=== PATIENT | female | born 1950 | race Caucasian/White ===

== ENCOUNTER 2016-04-27 09:18 | Outpatient (RCR) | payer BC ==
--- OUTSIDE RECORDS SUMMARY | 2016-03-02 09:05 | XMS REPORT | Continuity of Care Document ---
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 If you do not see the information that you expected, contact Release of Information in the Health Information Management department at [phone] for further assistance in locating additional records.[facility] Active Allergies and Adverse Reactions Allergen Noted Date Severity Reactions Comments Adhesive Tape (Rosins) 02/20/2012 RASH Per pt, paper tape is ok. Iodine 02/20/2012 HIVES From shampoo containing iodine. Pcn 02/20/2012 SEE COMMENTS "About passed out" Current Medications Prescription Sig. Disp. Refills Start End Date Status Date thyroid (ARMOUR THYROID) Take 120 mg by mouth Active 60 mg tablet daily. cholecalciferol (Vitamin Take 1,000 Units by mouth Active D3) (VITAMIN D-3) 1,000 daily. units tablet CALCIUM CARBONATE Take by mouth daily. Active (CALCIUM 500 PO) anastrozole (ARIMIDEX) 1 TAKE 1 TABLET BY MOUTH 90 Tab 4 04/02/20 Active mg tablet DAILY 15 venlafaxine XR (EFFEXOR Take 1 Cap by mouth 90 Cap 3 12/07/19 Active XR) 75 mg capsule daily. 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 Cervantes) HISTORY: Ms. Rivers is a 61 yo female who presented to the [facility] on 07/10/2012 for evaluation of her Stage IV left breast cancer. Ms. Rivers first presented to the Orthopedic clinic with a left proximal thigh lesion. She was having pain in her left leg since October-November 2011 after she bumped into her kitchen counter. She continued to have pain and had another accident when a large heavy object fell on her left distal thigh. She saw her PCP on 02/07/12 and xrays of the pelvis and left hip showed a large lytic lesion in the left proximal femur involving the femoral next, extending toward the greater trochanter and the metaphysis. Bone scan 02/01/12 showed a solitary metastatic focus in the left proximal femur that was highly suspicious for metastatic disease. A chest xray was negative for a primary lung cancer. CT chest/abdomen/pelvis 02/13/12 ([facility], [place]) showed a questionable spiculated lesion in the left breast and a again a 4cm lesion in the intratrochanteric and subintrarochanteric areas of the proximal left femur. She underwent open biopsy left proximal femur, resection of left proximal femur, and left modular proximal femur replacement with Dr. Cervantes due to impending pathological fracture from the lesion. She was admitted to the hospital and breast surgery was consulted. A left breast ultrasound 02/22/12 showed a 1.8 x 1.2 x 2.2 cm spiculated hypoechoic mass at 12:00, 3 cm FTN. An additional 8mm satellite lesion was seen at 12:30, 5 mm away from the dominant mass. The left axilla appeared normal without evidence of adenopathy. A bedside CNBx was performed of the 12:00 mass which revealed, grade 2, hormone +, Her2 negative, IDC. She was discharged 02/27/[address] Keith on 03/26/12; bilateral diagnostic mammograms at that time showed a 2.2 cm mass at 12:00 in the left breast and no other lesions were seen in either breast. There was no evidence of axillary adenopathy. She was started on Faslodex and Arimidex. She underwent 10 rounds of radiation treatment from the left femur to the right hip. Follow-up ultrasound 07/10/12 showed the known malignancy at 12:00, 3 cm FTN to have decreased in size measuring 1.8 cm compared to 2.2 cm on the prior exam. At 12:30, 3 cm the nipple at the site of prior ill-defined mass measuring 7 mm there is a small cystic structure measuring 5 mm. No other masses are seen at this location. The left axilla appeared normal without evidence of adenopathy. 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 No skin retraction, rash, erythema, skin thickening, dimpling, nipple discharge appreciated on exam". MEDICAL ONCOLOGY: Dr. Keith Present Therapy: Arimidex Status post left hip replacement 04/01/2012 Breast CA (HCC) 02/27/2012 Metastasis to bone (HCC) 02/27/2012 Most Recent Encounters Date Type Specialty Providers Description 12/15/2015 Documentation Oncology Abdias Keith MD 12/14/2015 Telephone Orthopedic Surgery Christine Cervantes MD Results 12/08/2015 Documentation Orthopedic Surgery Christine Cervantes MD 12/07/2015 Hospital Radiology Abdias Keith MD Encounter 12/07/2015 Office Visit Oncology Pamela Medrano APRN Malignant neoplasm of left female breast, unspecified site of breast (HCC) (Primary Dx) 12/07/2015 Telephone Orthopedic Surgery Christine Cervantes MD Appointment 12/07/2015 Telephone Orthopedic Surgery Christine Cervantes MD Appointment 12/07/2015 Telephone Orthopedic Surgery Christine Cervantes MD Appointment Immunizations Name Dates Previously Given Next Due FLU VACCINE >3YO 02/23/2012 (Preservative Free) Flu Vaccine 03/04/2015 Quadrivalent=>3 Yo (Preservative Free) Social History Tobacco Use Types Packs/Day Years Used Date Former Smoker Cigarettes 1 10 Quit: 05/22/1989 Smokeless Tobacco: Never Used Alcohol Use Drinks/Week oz/Week Comments No Last Filed Vital Signs Vital Sign Reading Time Taken Blood Pressure 164/52 12/07/2015 1:01 PM CDT Pulse 101 12/07/2015 1:01 PM CDT Temperature 36.7 C (98.1 F) 12/07/2015 1:01 PM CDT Respiratory Rate 17 09/02/2015 10:30 AM CDT Height 1.651 m (5' 5") 12/07/2015 1:01 PM CDT Weight 94.53 kg (208 lb 6.4 oz) 12/07/2015 1:01 PM CDT Body Mass Index 34.68 12/07/2015 1:01 PM CDT Oxygen Saturation 98% 12/07/2015 1:01 PM CDT Plan of Care Date Type Specialty Providers Description 03/09/2016 Appointment Radiology 03/09/2016 Appointment Radiology Abdias Keith MD [address] [facility] [address] [place] [address] [phone] (Fax) 03/09/2016 Appointment Oncology Pamela Medrano APRN [address] [place] [address] [phone] (Fax) Health Maintenance Due Date Last Done Comments Hepatitis C Screening 1950 Physical (Comprehensive) 11/26/1959 Exam Pertussis Vaccine 11/26/1963 Tetanus Vaccine 1969 Cervical Cancer Screening 1973 Colorectal Cancer 2002 Screening Shingles Vaccine 2012 Breast Cancer Screening 03/26/2014 03/26/2012 Influenza Vaccine 01/21/2016 03/04/2015, 02/23/2012 Results from Last 3 Months HIP MIN 4 VIEWS W PELVIS LT (12/07/2015 1:45 PM) Impressions 1. No evidence of an acute osseous abnormality. 2. Proximal left femoral prosthesis and left hip hemiarthroplasty. A small amount of pelvic calcification is identified adjacent to the left hip prosthesis. 3. Mild degenerative changes involving the right hip. Finalized by Vignesh Gaytan M.D. on 12/07/2015 2:23 PM. Dictated by Vignesh Gaytan M.D. on 12/07/2015 2:20 PM. Narrative Pelvis with left hip Clinic data: Pelvic pain A single AP projection of the pelvis and three projections of the left hip were acquired. Comparison is made to patient's prior study of 04/01/2013. A prosthetic left proximal femur and left hip hemiarthroplasties place. Alignment appears satisfactory. A small amount of heterotopic ossification is identified adjacent to the left hip. Mild degenerative changes are present involving the right hip which appears similar the prior study. The SI joints and pubic symphysis demonstrate no evidence of diastases. Osteitis pubis is noted. Procedure Note Interface, Radiant Results - MonDec 07, 2015 2:26 PM CDT Pelvis with left hip Clinic data: Pelvic pain A single AP projection of the pelvis and three projections of the left hip were acquired. Comparison is made to patient's prior study of 04/01/2013. A prosthetic left proximal femur and left hip hemiarthroplasties place. Alignment appears satisfactory. A small amount of heterotopic ossification is identified adjacent to the left hip. Mild degenerative changes are present involving the right hip which appears similar the prior study. The SI joints and pubic symphysis demonstrate no evidence of diastases. Osteitis pubis is noted. IMPRESSION 1. No evidence of an acute osseous abnormality. 2. Proximal left femoral prosthesis and left hip hemiarthroplasty. A small amount of pelvic calcification is identified adjacent to the left hip prosthesis. 3. Mild degenerative changes involving the right hip. Finalized by Vignesh Gaytan M.D. on 12/07/2015 2:23 PM. Dictated by Vignesh Gaytan M.D. on 12/07/2015 2:20 PM. COMPREHENSIVE METABOLIC PANEL (12/07/2015 10:06 AM) Component Value Range Sodium 139 137-147 MMOL/L Potassium 3.9 3.5-5.1 MMOL/L Chloride 106 98-110 MMOL/L Glucose 70 70-100 MG/DL Blood Urea Nitrogen 25 7-25 MG/DL Creatinine 0.84 0.4-1.00 MG/DL Calcium 9.7 8.5-10.6 MG/DL Total Protein 6.9 6.0-8.0 G/DL Total Bilirubin 0.6 0.3-1.2 MG/DL Albumin 4.0 3.5-5.0 G/DL Alk Phosphatase 84 25-110 U/L AST (SGOT) 17 7-40 U/L CO2 28 21-30 MMOL/L ALT (SGPT) 18 7-56 U/L Anion Gap 5 3-12 eGFR Non >60Comment: >60 mL/min The eGFR is not validated for use in drug dosing adjustments. Continue to use estimated creatinine clearance per dosing reference text. Please contact the Clinical Pharmacist for questions. eGFR >60Comment: >60 mL/min The eGFR is not validated for use in drug dosing adjustments. Continue to use estimated creatinine clearance per dosing reference text. Please contact the Clinical Pharmacist for questions. Specimen Blood CBC AND DIFF (12/07/2015 10:06 AM) Component Value Range White Blood Cells 5.3 4.5-11.0 K/UL RBC 4.69 4.0-5.0 M/UL Hemoglobin 13.5 12.0-15.0 GM/DL Hematocrit 39.6 36-45 % MCV 84.4 80-100 FL MCH 28.7 26-34 PG MCHC 34.0 32.0-36.0 G/DL RDW 12.8 11-15 % Platelet Count 216 150-400 K/UL MPV 8.0 7-11 FL Neutrophils 57 41-77 % Lymphocytes 27 24-44 % Monocytes 12 4-12 % Eosinophils 3 0-5 % Basophils 1 0-2 % Absolute Neutrophil Count 3.00 1.8-7.0 K/UL Absolute Lymph Count 1.40 1.0-4.8 K/UL Absolute Monocyte Count 0.70 0-0.80 K/UL Absolute Eosinophil Count 0.20 0-0.45 K/UL Absolute Basophil Count 0.00 0-0.20 K/UL Specimen Blood
[2016-03-30 14:10] LABS: BASOPHILS % (AUTO) 0 % (0-10); EOSINOPHILS # (AUTO) 0.1 10^3/uL (0.0-0.3); EOSINOPHILS % (AUTO) 3 % (0-10); LYMPHOCYTES # (AUTO) 1.5 X 10^3 (1.0-4.0); LYMPHOCYTES % (AUTO) 28 % (12-44); MEAN CORPUSCULAR HEMOGLOBIN 28 PG (25-34); MEAN CORPUSCULAR HGB CONC 34 G/DL (32-36); MEAN CORPUSCULAR VOLUME 83 FL (80-99); MONOCYTES # (AUTO) 0.5 X 10^3 (0.0-1.0); MONOCYTES % (AUTO) 9 % (0-12); NEUTROPHILS # (AUTO) 3.3 X 10^3 (1.8-7.8); NEUTROPHILS % (AUTO) 60 % (42-75); PLATELET COUNT 284 10^3/uL (130-400); RED BLOOD COUNT 5.08 10^6/uL (4.35-5.85); RED CELL DISTRIBUTION WIDTH 13.6 % (10.0-14.5); WHITE BLOOD COUNT 5.5 10^3/uL (4.3-11.0)
[2016-03-30 14:43] LABS: ALANINE AMINOTRANSFERASE 31 U/L (0-55); ALBUMIN 4.3 G/DL (3.2-4.5); ANION GAP 6 MMOL/L (5-14); ASPARTATE AMINO TRANSFERASE 23 U/L (5-34); BILIRUBIN,TOTAL 0.4 MG/DL (0.1-1.0); BLOOD UREA NITROGEN 14 MG/DL (7-18); BUN/CREATININE RATIO 19; CALCIUM 9.7 MG/DL (8.5-10.1); CARBON DIOXIDE 27 MMOL/L (21-32); CHLORIDE 107 MMOL/L (98-107); CREATININE SERUM 0.75 MG/DL (0.60-1.30); GFR ESTIMATED > 60; GLUCOSE 113 MG/DL (70-105); POTASSIUM 3.8 MMOL/L (3.6-5.0); SODIUM 140 MMOL/L (135-145); TOTAL PROTEIN 7.6 G/DL (6.4-8.2)
[~2016-04-27 09:18] MED LIST: DENOSUMAB 120 MG/1.7 ML (XGEVA) SQ SCH; FULVESTRANT 250 MG/5 ML SYR (CANCER CENTER) IM SCH
== END 2016-05-25 13:34 | disposition home or self-care (01) ==
LOC: ONC 09:18
PROVIDERS: ATTEND Internal Medicine Hematology & Oncology
DX: C50.912 Malignant neoplasm of unspecified site of left female breast (principal); C79.51 Secondary malignant neoplasm of bone; Z79.818 Long term (current) use of other agents affecting estrogen receptors and estrogen levels
CPT/HCPCS: 36415; 80053; 85025; 86300; 96372; 96402; 99213

== ENCOUNTER 2016-08-17 09:09 | Outpatient (RCR) | payer BC ==
--- OUTSIDE RECORDS SUMMARY | 2016-05-25 13:41 | XMS REPORT | Continuity of Care Document ---
Author Author [facility] Organization [facility] Address Unknown Phone Unavailable Care Team Providers Care [place] Name Role Phone Desililly Quan PCP [phone] Source Comments Some departments are not documenting in the electronic medical record. If you do not see the information that you expected, contact Release of Information in the Health Information Management department at [phone] for further assistance in locating additional records.[facility] Active Allergies and Adverse Reactions Allergen Noted [...] by mouth daily. Active (CALCIUM 500 PO) venlafaxine XR (EFFEXOR Take 1 Cap by mouth 90 Cap 3 12/07/19 Active XR) 75 mg capsule daily. 16 anastrozole (ARIMIDEX) 1 TAKE 1 TABLET BY MOUTH 90 Tab 4 04/04/20 Active mg tablet DAILY 16 levothyroxine (SYNTHROID) Take 100 mcg by mouth Active 100 mcg tablet daily 30 minutes before breakfast. cloNIDine HCl (CATAPRESS) Take 0.1 mg by mouth Active 0.1 mg tablet twice daily. losartan(+) (COZAAR) 100 Take 100 mg by mouth Active mg tablet daily. Active Problems Problem Noted Date Breast cancer [...] a primary lung cancer. CT chest/abdomen/pelvis 02/13/12 ([facility] [place]) showed a questionable spiculated lesion in the [...] Hypothyroidism (due to thyroidectomy for "overactive" thyroid) [employer] HISTORY: Menarche at 17, , first live [...] Recent Encounters Date Type Specialty Providers Description 05/25/2016 Office Visit Oncology Pamela Medrano APRN Malignant neoplasm of left female breast, unspecified site of breast (HCC) (Primary Dx) 04/04/2016 Refill Oncology Abdias Keith MD 03/09/2016 Office Visit Oncology Pamela Medrano APRN Malignant neoplasm of left female breast, unspecified site of breast (HCC) (Primary Dx) 03/09/2016 Hospital Radiology Abdias Keith MD Encounter 03/09/2016 Hospital Radiology Pamela Medrano APRN Encounter 03/09/2016 Ancillary Oncology Abdias Keith MD Malignant neoplasm of Orders left female breast, unspecified site of breast (HCC) (Primary Dx) 03/08/2016 Screening Form Immunizations Name Dates Previously Given Next Due FLU VACCINE >3YO 02/23/2012 (Preservative Free) Flu Vaccine 03/09/2016, 03/04/2015 Quadrivalent=>3 Yo (Preservative Free) Social History Tobacco Use Types Packs/Day Years Used Date Former Smoker Cigarettes 1 10 Quit: 05/22/1989 Smokeless Tobacco: Never Used Alcohol Use Drinks/Week oz/Week Comments No Last Filed Vital Signs Vital Sign Reading Time Taken Blood Pressure 164/83 05/25/2016 10:34 AM ENVIRONMENTAL COMPLIANCE OFFICER Pulse 78 05/25/2016 10:34 AM ENVIRONMENTAL COMPLIANCE OFFICER Temperature 36.4 C (97.6 F) 05/25/2016 10:34 AM ENVIRONMENTAL COMPLIANCE OFFICER Respiratory Rate 17 05/25/2016 10:34 AM ENVIRONMENTAL COMPLIANCE OFFICER Height 1.651 m (5' 5") 05/25/2016 10:35 AM ENVIRONMENTAL COMPLIANCE OFFICER Weight 94.802 kg (209 lb) 05/25/2016 10:35 AM ENVIRONMENTAL COMPLIANCE OFFICER Body Mass Index 34.78 05/25/2016 10:35 AM ENVIRONMENTAL COMPLIANCE OFFICER Oxygen Saturation 97% 05/25/2016 10:34 AM ENVIRONMENTAL COMPLIANCE OFFICER Plan of Care Date Type Specialty Providers Description 09/13/2016 Appointment Oncology 09/13/2016 Appointment Oncology Abdias Keith MD [address] [facility] [place] [address] [id number] [phone] (Fax) Health Maintenance Due Date Last Done Comments Hepatitis C Screening 1950 Physical (Comprehensive) 11/26/1959 Exam Pertussis Vaccine 11/26/1963 Tetanus Vaccine 1969 Cervical Cancer Screening 1973 Colorectal Cancer 2002 Screening Shingles Vaccine 2012 Breast Cancer Screening 03/26/2014 03/26/2012 Influenza Vaccine 01/20/2017 03/09/2016, 03/04/2015, 02/23/2012 Results from Last 3 Months CBC AND DIFF (05/25/2016 10:18 AM)Only the most recent of 2 results within the time period is included. Component Value Range White Blood Cells 6.1 4.5-11.0 K/UL RBC 4.81 4.0-5.0 M/UL Hemoglobin 14.1 12.0-15.0 GM/DL Hematocrit 41.3 36-45 % MCV 85.8 80-100 FL MCH 29.4 26-34 PG MCHC 34.3 32.0-36.0 G/DL RDW 14.1 11-15 % Platelet Count 265 150-400 K/UL MPV 7.9 7-11 FL Neutrophils 69 41-77 % Lymphocytes 19 (L) 24-44 % Monocytes 8 4-12 % Eosinophils 3 0-5 % Basophils 1 0-2 % Absolute Neutrophil Count 4.20 1.8-7.0 K/UL Absolute Lymph Count 1.20 1.0-4.8 K/UL Absolute Monocyte Count 0.50 0-0.80 K/UL Absolute Eosinophil Count 0.20 0-0.45 K/UL Absolute Basophil Count 0.00 0-0.20 K/UL Specimen Blood COMPREHENSIVE METABOLIC PANEL (05/25/2016 10:18 AM)Only the most recent of 2 results within the time period is included. Component Value Range Sodium 135 (L) 137-147 MMOL/L Potassium 4.0 3.5-5.1 MMOL/L Chloride 104 98-110 MMOL/L Glucose 83 70-100 MG/DL Blood Urea Nitrogen 17 7-25 MG/DL Creatinine 0.91 0.4-1.00 MG/DL Calcium 9.2 8.5-10.6 MG/DL Total Protein 7.1 6.0-8.0 G/DL Total Bilirubin 0.4 0.3-1.2 MG/DL Albumin 4.2 3.5-5.0 G/DL Alk Phosphatase 59 25-110 U/L AST (SGOT) 20 7-40 U/L CO2 26 21-30 MMOL/L ALT (SGPT) 22 7-56 U/L Anion Gap 5 3-12 eGFR [...] the Clinical Pharmacist for questions. Specimen Blood CT ABD/PELV W CONTRAST (03/09/2016 12:00 PM) Impressions Chest: 1. STABLE IRREGULAR SPICULATED AREA IN THE LEFT UPPER INNER BREAST, REFLECTIVE OF PATIENT'S SITE OF BREAST CANCER. 2. MILDLY PROMINENT BILATERAL HILAR NODES WHICH MAY BE REACTIVE IN NATURE. 3. NO CT EVIDENCE OF PULMONARY METASTASIS. 4. MODERATE SIZE HIATAL HERNIA. Abdomen and Pelvis: 1. TINY LOW-DENSITY LIVER LESION IN SEGMENT 4A WHICH WAS NOT APPARENT ON THE PRIOR STUDY BUT IS TOO SMALL TO CHARACTERIZE. THIS MAY REPRESENT A TINY HEPATIC CYST. HEPATIC METASTASIS MAY ALSO GIVE A SIMILAR APPEARANCE. CORRELATION WITH ULTRASOUND OF THE ABDOMEN OR MRI OF THE ABDOMEN MAY BE OBTAINED. 2. NO ABDOMINAL/PELVIC ADENOPATHY OR ASCITES. 3. LEFT RENAL CYSTS. 4. STABLE PRIOR LEFT HIP ARTHROPLASTY. 5. STABLE INCREASED SCLEROSIS INVOLVING THE SYMPHYSIS PUBIS, WHICH MAY BE DUE TO OSTEITIS PUBIS OR POST THERAPEUTIC CHANGE. Finalized by Rikki Reyes M.D. on 03/09/2016 1:23 PM. Dictated by Rikki Reyes M.D. on 03/09/2016 12:[address] Chest, Abdomen and Pelvis Clinical Indication:65 years old Female BREAST CANCER.Malignant neoplasm of left female breast, unspecified site of breast. Technique: Multiple contiguous axial images were obtained through the chest, abd omen and pelvis following the administration of IV contrast material. Portal venous and delayed imaging was obtained. Post processing coronal and sagittal reconstruction images were made from the axial images. IV contrast: 100 mL Isovue 370. Bowel contrast:30 mL Gastrografin mixed with water Comparison: Outside CT of the chest, abdomen and pelvis dated 06/02/2014. Chest Findings: Axilla, Mediastinum and Mame: No significant axillary or mediastinal adenopathy. Calcified right hilar granulomas are noted. Prominent bilateral hilar nodes are seen within the right hilar node measuring 1.0 cm in diameter on image 2/30 compared to prior measurement of 0.9 cm. Moderate-sized hiatal hernia is identified. Heart and Great Vessels: The heart is mildly enlarged. No pericardial effusion is noted. The thoracic aorta is normal in caliber. Mild atherosclerotic ossification about the aortic arch is noted. Trachea and Major Bronchi: The major airways are widely patent. Lungs and Pleura: Mild emphysema. Calcified granuloma is identified in the right upper lobe. Scattered patchy pleural parenchymal scars are noted in both lungs. No pneumothorax, acute pulmonary infiltrates, consolidation or pleural effusion is noted. No suspicious pulmonary nodules are identified. Chest Wall and Osseous Structures: There is stable size of irregular spiculated area in the upper inner portion of the left breast measuring 1.7 cm x 0.9 cm on image 2/18 compared to prior measurement of 1.6 cm x 0.9 cm. Degenerative changes are noted involving the thoracic spine with mild accentuation of the thoracic kyphotic curve. No suspicious destructive osseous lesions are identified. Abdomen and Pelvis Findings: Liver and Biliary system: The liver is normal in size. There is a tiny low- density lesion in segment 4A of the liver on image 2/69 which is too small to characterize and is not clearly evident on the prior study. No other new focal hepatic lesion is seen. No intra or extrahepatic biliary ductal dilatation is appreciated. The gallbladder is unremarkable. Spleen: The spleen is normal in size with occasional small calcified splenic granulomas. No focal splenic lesion appreciated. Adrenal Glands and Kidneys: The bilateral adrenal glands and right kidney appear unremarkable. A low-density lesion is noted about the interpolar region of the left kidney measuring 1.8 cm in diameter compatible with left renal cyst. Pancreas and Retroperitoneum: The pancreas appears unremarkable. No significant retroperitoneal adenopathy seen. Aorta and Major Vessels: The abdominal aorta is normal in caliber. There is mild atherosclerotic calcification of the abdominal aorta and bilateral common iliac arteries. Bowel: The small and large bowel loops are normal in caliber. Mesentery and Peritoneal space: No significant mesenteric adenopathy is identified. No significant abdominal or pelvic ascites is appreciated. Pelvis: No significant inguinal or iliac adenopathy is identified. The urinary bladder is adequately distended with thin gallardo. The uterus is absent. Abdominal wall and Osseous Structures: Thoracolumbar spondylosis is again identified. Prior left hip arthroplasty is again noted. Increased sclerosis about the symphysis pubis. No suspicious destructive osseous lesions are identified. Procedure Note Interface, Radiant Results - Wed Mar 09, 2016 1:[address] Chest, Abdomen and Pelvis Clinical Indication:65 years old Female BREAST CANCER.Malignant neoplasm of left female breast, unspecified site of breast. Technique: Multiple contiguous axial images were obtained through the chest, abdomen and pelvis following the administration of IV contrast material. Portal venous and delayed imaging was obtained. Post processing coronal and sagittal reconstruction images were made from the axial images. IV contrast: 100 mL Isovue 370. Bowel contrast: 30 mL Gastrografin mixed with water Comparison: Outside CT of the chest, abdomen and pelvis dated 06/02/2014. Chest Findings: Axilla, Mediastinum and Mame: No significant axillary or mediastinal adenopathy. Calcified right hilar granulomas are noted. Prominent bilateral hilar nodes are seen within the right hilar node measuring 1.0 cm in diameter on image 2/30 compared to prior measurement of 0.9 cm. Moderate-sized hiatal hernia is identified. Heart and Great Vessels: The heart is mildly enlarged. No pericardial effusion is noted. The thoracic aorta is normal in caliber. Mild atherosclerotic ossification about the aortic arch is noted. Trachea and Major Bronchi: The major airways are widely patent. Lungs and Pleura: Mild emphysema. Calcified granuloma is identified in the right upper lobe. Scattered patchy pleural parenchymal scars are noted in both lungs. No pneumothorax, acute pulmonary infiltrates, consolidation or pleural effusion is noted. No suspicious pulmonary nodules are identified. Chest Wall and Osseous Structures: There is stable size of irregular spiculated area in the upper inner portion of the left breast measuring 1.7 cm x 0.9 cm on image 2/18 compared to prior measurement of 1.6 cm x 0.9 cm. Degenerative changes are noted involving the thoracic spine with mild accentuation of the thoracic kyphotic curve. No suspicious destructive osseous lesions are identified. Abdomen and Pelvis Findings: Liver and Biliary system: The liver is normal in size. There is a tiny low- density lesion in segment 4A of the liver on image 2/69 which is too small to characterize and is not clearly evident on the prior study. No other new focal hepatic lesion is seen. No intra or extrahepatic biliary ductal dilatation is appreciated. The gallbladder is unremarkable. Spleen: The spleen is normal in size with occasional small calcified splenic granulomas. No focal splenic lesion appreciated. Adrenal Glands and Kidneys: The bilateral adrenal glands and right kidney appear unremarkable. A low-density lesion is noted about the interpolar region of the left kidney measuring 1.8 cm in diameter compatible with left renal cyst. Pancreas and Retroperitoneum: The pancreas appears unremarkable. No significant retroperitoneal adenopathy seen. Aorta and Major Vessels: The abdominal aorta is normal in caliber. There is mild atherosclerotic calcification of the abdominal aorta and bilateral common iliac arteries. Bowel: The small and large bowel loops are normal in caliber. Mesentery and Peritoneal space: No significant mesenteric adenopathy is identified. No significant abdominal or pelvic ascites is appreciated. Pelvis: No significant inguinal or iliac adenopathy is identified. The urinary bladder is adequately distended with thin gallardo. The uterus is absent. Abdominal wall and Osseous Structures: Thoracolumbar spondylosis is again identified. Prior left hip arthroplasty is again noted. Increased sclerosis about the symphysis pubis. No suspicious destructive osseous lesions are identified. IMPRESSION Chest: 1. STABLE IRREGULAR SPICULATED AREA IN THE LEFT UPPER INNER BREAST, REFLECTIVE OF PATIENT'S SITE OF BREAST CANCER. 2. MILDLY PROMINENT BILATERAL HILAR NODES WHICH MAY BE REACTIVE IN NATURE. 3. NO CT EVIDENCE OF PULMONARY METASTASIS. 4. MODERATE SIZE HIATAL HERNIA. Abdomen and Pelvis: 1. TINY LOW-DENSITY LIVER LESION IN SEGMENT 4A WHICH WAS NOT APPARENT ON THE PRIOR STUDY BUT IS TOO SMALL TO CHARACTERIZE. THIS MAY REPRESENT A TINY HEPATIC CYST. HEPATIC METASTASIS MAY ALSO GIVE A SIMILAR APPEARANCE. CORRELATION WITH ULTRASOUND OF THE ABDOMEN OR MRI OF THE ABDOMEN MAY BE OBTAINED. 2. NO ABDOMINAL/PELVIC ADENOPATHY OR ASCITES. 3. LEFT RENAL CYSTS. 4. STABLE PRIOR LEFT HIP ARTHROPLASTY. 5. STABLE INCREASED SCLEROSIS INVOLVING THE SYMPHYSIS PUBIS, WHICH MAY BE DUE TO OSTEITIS PUBIS OR POST THERAPEUTIC CHANGE. Finalized by Rikki Reyes M.D. on 03/09/2016 1:23 PM. Dictated by Rikki Reyes M.D. on 03/09/2016 12:[address] CHEST W CONTRAST (03/09/2016 12:00 PM) Impressions Chest: 1. STABLE IRREGULAR SPICULATED AREA IN THE LEFT UPPER INNER BREAST, REFLECTIVE OF PATIENT'S SITE OF BREAST CANCER. 2. MILDLY PROMINENT BILATERAL HILAR NODES WHICH MAY BE REACTIVE IN NATURE. 3. NO CT EVIDENCE OF PULMONARY METASTASIS. 4. MODERATE SIZE HIATAL HERNIA. Abdomen and Pelvis: 1. TINY LOW-DENSITY LIVER LESION IN SEGMENT 4A WHICH WAS NOT APPARENT ON THE PRIOR STUDY BUT IS TOO SMALL TO CHARACTERIZE. THIS MAY REPRESENT A TINY HEPATIC CYST. HEPATIC METASTASIS MAY ALSO GIVE A SIMILAR APPEARANCE. CORRELATION WITH ULTRASOUND OF THE ABDOMEN OR MRI OF THE ABDOMEN MAY BE OBTAINED. 2. NO ABDOMINAL/PELVIC ADENOPATHY OR ASCITES. 3. LEFT RENAL CYSTS. 4. STABLE PRIOR LEFT HIP ARTHROPLASTY. 5. STABLE INCREASED SCLEROSIS INVOLVING THE SYMPHYSIS PUBIS, WHICH MAY BE DUE TO OSTEITIS PUBIS OR POST THERAPEUTIC CHANGE. Finalized by Rikki Reyes M.D. on 03/09/2016 1:23 PM. Dictated by Rikki Reyes M.D. on 03/09/2016 12:[address] Chest, Abdomen and Pelvis Clinical Indication:65 years old Female BREAST CANCER.Malignant neoplasm of left female breast, unspecified site of breast. Technique: Multiple contiguous axial images were obtained through the chest, abd omen and pelvis following the administration of IV contrast material. Portal venous and delayed imaging was obtained. Post processing coronal and sagittal reconstruction images were made from the axial images. IV contrast: 100 mL Isovue 370. Bowel contrast:30 mL Gastrografin mixed with water Comparison: Outside CT of the chest, abdomen and pelvis dated 06/02/2014. Chest Findings: Axilla, Mediastinum and Mame: No significant axillary or mediastinal adenopathy. Calcified right hilar granulomas are noted. Prominent bilateral hilar nodes are seen within the right hilar node measuring 1.0 cm in diameter on image 2/30 compared to prior measurement of 0.9 cm. Moderate-sized hiatal hernia is identified. Heart and Great Vessels: The heart is mildly enlarged. No pericardial effusion is noted. The thoracic aorta is normal in caliber. Mild atherosclerotic ossification about the aortic arch is noted. Trachea and Major Bronchi: The major airways are widely patent. Lungs and Pleura: Mild emphysema. Calcified granuloma is identified in the right upper lobe. Scattered patchy pleural parenchymal scars are noted in both lungs. No pneumothorax, acute pulmonary infiltrates, consolidation or pleural effusion is noted. No suspicious pulmonary nodules are identified. Chest Wall and Osseous Structures: There is stable size of irregular spiculated area in the upper inner portion of the left breast measuring 1.7 cm x 0.9 cm on image 2/18 compared to prior measurement of 1.6 cm x 0.9 cm. Degenerative changes are noted involving the thoracic spine with mild accentuation of the thoracic kyphotic curve. No suspicious destructive osseous lesions are identified. Abdomen and Pelvis Findings: Liver and Biliary system: The liver is normal in size. There is a tiny low- density lesion in segment 4A of the liver on image 2/69 which is too small to characterize and is not clearly evident on the prior study. No other new focal hepatic lesion is seen. No intra or extrahepatic biliary ductal dilatation is appreciated. The gallbladder is unremarkable. Spleen: The spleen is normal in size with occasional small calcified splenic granulomas. No focal splenic lesion appreciated. Adrenal Glands and Kidneys: The bilateral adrenal glands and right kidney appear unremarkable. A low-density lesion is noted about the interpolar region of the left kidney measuring 1.8 cm in diameter compatible with left renal cyst. Pancreas and Retroperitoneum: The pancreas appears unremarkable. No significant retroperitoneal adenopathy seen. Aorta and Major Vessels: The abdominal aorta is normal in caliber. There is mild atherosclerotic calcification of the abdominal aorta and bilateral common iliac arteries. Bowel: The small and large bowel loops are normal in caliber. Mesentery and Peritoneal space: No significant mesenteric adenopathy is identified. No significant abdominal or pelvic ascites is appreciated. Pelvis: No significant inguinal or iliac adenopathy is identified. The urinary bladder is adequately distended with thin gallardo. The uterus is absent. Abdominal wall and Osseous Structures: Thoracolumbar spondylosis is again identified. Prior left hip arthroplasty is again noted. Increased sclerosis about the symphysis pubis. No suspicious destructive osseous lesions are identified. Procedure Note Interface, Radiant Results - Wed Mar 09, 2016 1:[address] Chest, Abdomen and Pelvis Clinical Indication:65 years old Female BREAST CANCER.Malignant neoplasm of left female breast, unspecified site of breast. Technique: Multiple contiguous axial images were obtained through the chest, abdomen and pelvis following the administration of IV contrast material. Portal venous and delayed imaging was obtained. Post processing coronal and sagittal reconstruction images were made from the axial images. IV contrast: 100 mL Isovue 370. Bowel contrast: 30 mL Gastrografin mixed with water Comparison: Outside CT of the chest, abdomen and pelvis dated 06/02/2014. Chest Findings: Axilla, Mediastinum and Mame: No significant axillary or mediastinal adenopathy. Calcified right hilar granulomas are noted. Prominent bilateral hilar nodes are seen within the right hilar node measuring 1.0 cm in diameter on image 2/30 compared to prior measurement of 0.9 cm. Moderate-sized hiatal hernia is identified. Heart and Great Vessels: The heart is mildly enlarged. No pericardial effusion is noted. The thoracic aorta is normal in caliber. Mild atherosclerotic ossification about the aortic arch is noted. Trachea and Major Bronchi: The major airways are widely patent. Lungs and Pleura: Mild emphysema. Calcified granuloma is identified in the right upper lobe. Scattered patchy pleural parenchymal scars are noted in both lungs. No pneumothorax, acute pulmonary infiltrates, consolidation or pleural effusion is noted. No suspicious pulmonary nodules are identified. Chest Wall and Osseous Structures: There is stable size of irregular spiculated area in the upper inner portion of the left breast measuring 1.7 cm x 0.9 cm on image 2/18 compared to prior measurement of 1.6 cm x 0.9 cm. Degenerative changes are noted involving the thoracic spine with mild accentuation of the thoracic kyphotic curve. No suspicious destructive osseous lesions are identified. Abdomen and Pelvis Findings: Liver and Biliary system: The liver is normal in size. There is a tiny low- density lesion in segment 4A of the liver on image 2/69 which is too small to characterize and is not clearly evident on the prior study. No other new focal hepatic lesion is seen. No intra or extrahepatic biliary ductal dilatation is appreciated. The gallbladder is unremarkable. Spleen: The spleen is normal in size with occasional small calcified splenic granulomas. No focal splenic lesion appreciated. Adrenal Glands and Kidneys: The bilateral adrenal glands and right kidney appear unremarkable. A low-density lesion is noted about the interpolar region of the left kidney measuring 1.8 cm in diameter compatible with left renal cyst. Pancreas and Retroperitoneum: The pancreas appears unremarkable. No significant retroperitoneal adenopathy seen. Aorta and Major Vessels: The abdominal aorta is normal in caliber. There is mild atherosclerotic calcification of the abdominal aorta and bilateral common iliac arteries. Bowel: The small and large bowel loops are normal in caliber. Mesentery and Peritoneal space: No significant mesenteric adenopathy is identified. No significant abdominal or pelvic ascites is appreciated. Pelvis: No significant inguinal or iliac adenopathy is identified. The urinary bladder is adequately distended with thin gallardo. The uterus is absent. Abdominal wall and Osseous Structures: Thoracolumbar spondylosis is again identified. Prior left hip arthroplasty is again noted. Increased sclerosis about the symphysis pubis. No suspicious destructive osseous lesions are identified. IMPRESSION Chest: 1. STABLE IRREGULAR SPICULATED AREA IN THE LEFT UPPER INNER BREAST, REFLECTIVE OF PATIENT'S SITE OF BREAST CANCER. 2. MILDLY PROMINENT BILATERAL HILAR NODES WHICH MAY BE REACTIVE IN NATURE. 3. NO CT EVIDENCE OF PULMONARY METASTASIS. 4. MODERATE SIZE HIATAL HERNIA. Abdomen and Pelvis: 1. TINY LOW-DENSITY LIVER LESION IN SEGMENT 4A WHICH WAS NOT APPARENT ON THE PRIOR STUDY BUT IS TOO SMALL TO CHARACTERIZE. THIS MAY REPRESENT A TINY HEPATIC CYST. HEPATIC METASTASIS MAY ALSO GIVE A SIMILAR APPEARANCE. CORRELATION WITH ULTRASOUND OF THE ABDOMEN OR MRI OF THE ABDOMEN MAY BE OBTAINED. 2. NO ABDOMINAL/PELVIC ADENOPATHY OR ASCITES. 3. LEFT RENAL CYSTS. 4. STABLE PRIOR LEFT HIP ARTHROPLASTY. 5. STABLE INCREASED SCLEROSIS INVOLVING THE SYMPHYSIS PUBIS, WHICH MAY BE DUE TO OSTEITIS PUBIS OR POST THERAPEUTIC CHANGE. Finalized by Rikki Reyes M.D. on 03/09/2016 1:23 PM. Dictated by Rikki Reyes M.D. on 03/09/2016 12:55 PM.
[2016-06-22 14:18] LABS: BASOPHILS % (AUTO) 1 % (0-10); EOSINOPHILS # (AUTO) 0.2 10^3/uL (0.0-0.3); EOSINOPHILS % (AUTO) 3 % (0-10); LYMPHOCYTES # (AUTO) 1.2 X 10^3 (1.0-4.0); LYMPHOCYTES % (AUTO) 22 % (12-44); MEAN CORPUSCULAR HEMOGLOBIN 29 PG (25-34); MEAN CORPUSCULAR HGB CONC 34 G/DL (32-36); MEAN CORPUSCULAR VOLUME 87 FL (80-99); MEAN PLATELET VOLUME 9.1 FL (7.4-10.4); MONOCYTES # (AUTO) 0.6 X 10^3 (0.0-1.0); MONOCYTES % (AUTO) 10 % (0-12); NEUTROPHILS # (AUTO) 3.6 X 10^3 (1.8-7.8); NEUTROPHILS % (AUTO) 64 % (42-75); PLATELET COUNT 280 10^3/uL (130-400); RED BLOOD COUNT 4.82 10^6/uL (4.35-5.85); RED CELL DISTRIBUTION WIDTH 13.9 % (10.0-14.5); WHITE BLOOD COUNT 5.6 10^3/uL (4.3-11.0)
[2016-06-22 14:48] LABS: ALANINE AMINOTRANSFERASE 28 U/L (0-55); ALBUMIN 4.3 G/DL (3.2-4.5); ANION GAP 9 MMOL/L (5-14); ASPARTATE AMINO TRANSFERASE 23 U/L (5-34); BILIRUBIN,TOTAL 0.4 MG/DL (0.1-1.0); BLOOD UREA NITROGEN 17 MG/DL (7-18); BUN/CREATININE RATIO 20; CALCIUM 9.5 MG/DL (8.5-10.1); CARBON DIOXIDE 27 MMOL/L (21-32); CHLORIDE 105 MMOL/L (98-107); CREATININE SERUM 0.85 MG/DL (0.60-1.30); GFR ESTIMATED > 60; GLUCOSE 81 MG/DL (70-105); POTASSIUM 3.9 MMOL/L (3.6-5.0); SODIUM 141 MMOL/L (135-145); TOTAL PROTEIN 7.4 G/DL (6.4-8.2)
[2016-08-17 09:53] LABS: BASOPHILS % (AUTO) 1 % (0-10); EOSINOPHILS # (AUTO) 0.2 10^3/uL (0.0-0.3); EOSINOPHILS % (AUTO) 4 % (0-10); LYMPHOCYTES # (AUTO) 1.3 X 10^3 (1.0-4.0); LYMPHOCYTES % (AUTO) 23 % (12-44); MEAN CORPUSCULAR HEMOGLOBIN 30 PG (25-34); MEAN CORPUSCULAR HGB CONC 34 G/DL (32-36); MEAN CORPUSCULAR VOLUME 88 FL (80-99); MEAN PLATELET VOLUME 9.2 FL (7.4-10.4); MONOCYTES # (AUTO) 0.5 X 10^3 (0.0-1.0); MONOCYTES % (AUTO) 9 % (0-12); NEUTROPHILS # (AUTO) 3.6 X 10^3 (1.8-7.8); NEUTROPHILS % (AUTO) 64 % (42-75); PLATELET COUNT 265 10^3/uL (130-400); RED BLOOD COUNT 4.74 10^6/uL (4.35-5.85); RED CELL DISTRIBUTION WIDTH 13.6 % (10.0-14.5); WHITE BLOOD COUNT 5.6 10^3/uL (4.3-11.0)
[2016-08-17 10:17] LABS: ALANINE AMINOTRANSFERASE 28 U/L (0-55); ALBUMIN 4.1 G/DL (3.2-4.5); ANION GAP 6 MMOL/L (5-14); ASPARTATE AMINO TRANSFERASE 25 U/L (5-34); BILIRUBIN,TOTAL 0.5 MG/DL (0.1-1.0); BLOOD UREA NITROGEN 18 MG/DL (7-18); BUN/CREATININE RATIO 22; CALCIUM 9.4 MG/DL (8.5-10.1); CARBON DIOXIDE 29 MMOL/L (21-32); CHLORIDE 106 MMOL/L (98-107); CREATININE SERUM 0.81 MG/DL (0.60-1.30); GFR ESTIMATED > 60; GLUCOSE 93 MG/DL (70-105); POTASSIUM 4.5 MMOL/L (3.6-5.0); SODIUM 141 MMOL/L (135-145); TOTAL PROTEIN 7.1 G/DL (6.4-8.2)
== END 2016-08-23 | disposition home or self-care (01) ==
LOC: ONC 09:09
PROVIDERS: ATTEND Internal Medicine Hematology & Oncology
DX: C50.412 Malignant neoplasm of upper-outer quadrant of left female breast (principal); C79.51 Secondary malignant neoplasm of bone; Z79.818 Long term (current) use of other agents affecting estrogen receptors and estrogen levels
CPT/HCPCS: 36415; 80053; 82306; 85025; 86300; 96372; 96402; 99213

== ENCOUNTER → 2016-09-05 | Outpatient (CLI) | payer BC ==
[~2016-09-05] MED LIST changes: +CATHETER FLUSH 10 ML SYR IV PRN; -DENOSUMAB 120 MG/1.7 ML (XGEVA) SQ SCH; -FULVESTRANT 250 MG/5 ML SYR (CANCER CENTER) IM SCH; +IOHEXOL 350 MG/ML 100 ML (OMNIPAQUE 350) VIAL IV ONE; +NS 100 ML (IVPB) BAG IV ONE
[2016-09-05] MEDS: CATHETER FLUSH 10 ML SYR IV PRN ×2 (11:17→11:36)
--- NOTE | 2016-09-05 12:49 | Diagnostic Imaging Report ---
PROCEDURE: CT chest and abdomen with contrast. TECHNIQUE: Multiple contiguous axial images were obtained through the chest and abdomen after the administration of intravenous contrast. INDICATION: Breast cancer. COMPARISON: 08/19/2015. FINDINGS: CT CHEST: The previously seen groundglass opacity in the medial aspect of the right upper lobe appears less prominent compared to the prior study. There is mild scarring in the medial aspect of the right middle lobe as well. There is calcified granuloma in the right upper lobe. There is no significant consolidation, mass or suspicious lung nodules seen. Minimal emphysema changes in the lung apices seen. There is no mediastinal mass. No significantly enlarged mediastinal or hilar lymph node is seen. There is a calcified nodule in the right hilum. This is similar to the prior study. No axillary lymphadenopathy is noted. There is a stable 1.4 cm nodular density seen in the upper aspect of the left breast. Correlate with mammography and breast ultrasound. The osseous structures demonstrate degenerative changes in the mid and lower thoracic spine. There is a moderate hiatal hernia. CT ABDOMEN: The liver is fairly homogeneous with no focal lesion. The gallbladder demonstrates no calcified stones. The spleen, the adrenals, and the pancreas appear unremarkable. There is symmetric contrast enhancement with no hydronephrosis seen in the kidneys. The abdominal aorta demonstrates normal caliber. No para-aortic significantly enlarged lymph nodes seen. Osseous structures demonstrate degenerative changes and right convexity scoliotic curvature at the thoracolumbar level. No destructive mass. IMPRESSION: CT CHEST: 1. Stable 1.4 cm upper left breast nodule, indeterminate. Correlate with mammography and breast ultrasound. 2. Scarring in the medial aspect of the right middle lobe and improving groundglass opacity in the right upper lobe suggestive of improving pneumonitis. CT ABDOMEN: Moderate hiatal hernia. No evidence of metastasis. Dictated by: Dictated on workstation # [id number]
--- NOTE | 2016-09-05 16:33 | Diagnostic Imaging Report ---
EXAMINATION: Whole body bone scan. TECHNIQUE: After the intravenous administration of 26 mCi of Technetium 99m MDP, whole body delayed phase bone scan images were obtained with lateral views of the head and neck and the chest regions. INDICATION: Breast cancer. COMPARISON: 04/04/2016. FINDINGS: There is mild degenerative related activity in the spine, shoulders, knees, and ankles, more on the right side, with no intense new areas of activity seen, particularly within the axial skeleton, to suggest metastasis. Urinary tract excretion is noted. IMPRESSION: The findings are likely related to degenerative changes with no scintigraphic evidence of bone metastasis. Dictated by: Dictated on workstation # [id number]
== END ==
LOC: CARD 11:04
PROVIDERS: ATTEND Nurse Practitioner Adult Health
DX: C50.412 Malignant neoplasm of upper-outer quadrant of left female breast (principal); C79.51 Secondary malignant neoplasm of bone
CPT/HCPCS: 71260; 74160; 78306

== ENCOUNTER 2016-12-07 10:27 | Outpatient (RCR) | payer BC ==
[~2016-12-07 10:27] MED LIST changes: -CATHETER FLUSH 10 ML SYR IV PRN; +DENOSUMAB 120 MG/1.7 ML (XGEVA) SQ SCH; +FULVESTRANT 250 MG/5 ML SYR (CANCER CENTER) IM SCH; -IOHEXOL 350 MG/ML 100 ML (OMNIPAQUE 350) VIAL IV ONE; -NS 100 ML (IVPB) BAG IV ONE
[2016-12-07 10:39] LABS: BASOPHILS % (AUTO) 0 % (0-10); EOSINOPHILS # (AUTO) 0.3 10^3/uL (0.0-0.3); EOSINOPHILS % (AUTO) 4 % (0-10); LYMPHOCYTES # (AUTO) 1.4 X 10^3 (1.0-4.0); LYMPHOCYTES % (AUTO) 23 % (12-44); MEAN CORPUSCULAR HEMOGLOBIN 30 PG (25-34); MEAN CORPUSCULAR HGB CONC 34 G/DL (32-36); MEAN CORPUSCULAR VOLUME 89 FL (80-99); MEAN PLATELET VOLUME 8.9 FL (7.4-10.4); MONOCYTES # (AUTO) 0.6 X 10^3 (0.0-1.0); MONOCYTES % (AUTO) 9 % (0-12); NEUTROPHILS # (AUTO) 3.9 X 10^3 (1.8-7.8); NEUTROPHILS % (AUTO) 63 % (42-75); PLATELET COUNT 271 10^3/uL (130-400); RED BLOOD COUNT 4.61 10^6/uL (4.35-5.85); RED CELL DISTRIBUTION WIDTH 13.4 % (10.0-14.5); WHITE BLOOD COUNT 6.2 10^3/uL (4.3-11.0)
[2016-12-07 11:12] LABS: ALANINE AMINOTRANSFERASE 26 U/L (0-55); ALBUMIN 4.1 GM/DL (3.2-4.5); ANION GAP 7 MMOL/L (5-14); ASPARTATE AMINO TRANSFERASE 21 U/L (5-34); BILIRUBIN,TOTAL 0.5 MG/DL (0.1-1.0); BLOOD UREA NITROGEN 19 MG/DL (7-18); BUN/CREATININE RATIO 22; CALCIUM 9.2 MG/DL (8.5-10.1); CARBON DIOXIDE 27 MMOL/L (21-32); CHLORIDE 105 MMOL/L (98-107); CREATININE SERUM 0.88 MG/DL (0.60-1.30); GFR ESTIMATED > 60; GLUCOSE 92 MG/DL (70-105); POTASSIUM 4.6 MMOL/L (3.6-5.0); SODIUM 139 MMOL/L (135-145); TOTAL PROTEIN 7.3 GM/DL (6.4-8.2)
== END 2016-12-13 | disposition home or self-care (01) ==
LOC: ONC 10:27
PROVIDERS: ATTEND Internal Medicine Hematology & Oncology
DX: C50.412 Malignant neoplasm of upper-outer quadrant of left female breast (principal); C79.51 Secondary malignant neoplasm of bone; Z79.818 Long term (current) use of other agents affecting estrogen receptors and estrogen levels
CPT/HCPCS: 36415; 80053; 82306; 85025; 86300; 96372; 96402; 99213

== ENCOUNTER 2017-02-01 09:54 | Outpatient (RCR) | payer BC | END 2017-02-18 | disposition home or self-care (01) | LOC: ONC 09:54 | PROVIDERS: ATTEND Internal Medicine Hematology & Oncology | DX: C50.412 Malignant neoplasm of upper-outer quadrant of left female breast (principal); C79.51 Secondary malignant neoplasm of bone; Z79.818 Long term (current) use of other agents affecting estrogen receptors and estrogen levels | CPT/HCPCS: 96372; 96402 ==

== ENCOUNTER 2017-04-26 09:20 | Outpatient (RCR) | payer BC ==
[2017-03-01 11:10] LABS: BASOPHILS % (AUTO) 0 % (0-10); EOSINOPHILS # (AUTO) 0.2 10^3/uL (0.0-0.3); EOSINOPHILS % (AUTO) 4 % (0-10); HEMATOCRIT 44 % (35-52); HEMOGLOBIN 14.4 G/DL (11.5-16.0); LYMPHOCYTES # (AUTO) 1.1 X 10^3 (1.0-4.0); LYMPHOCYTES % (AUTO) 20 % (12-44); MEAN CORPUSCULAR HEMOGLOBIN 29 PG (25-34); MEAN CORPUSCULAR HGB CONC 33 G/DL (32-36); MEAN CORPUSCULAR VOLUME 90 FL (80-99); MEAN PLATELET VOLUME 9.6 FL (7.4-10.4); MONOCYTES # (AUTO) 0.4 X 10^3 (0.0-1.0); MONOCYTES % (AUTO) 7 % (0-12); NEUTROPHILS # (AUTO) 3.9 X 10^3 (1.8-7.8); NEUTROPHILS % (AUTO) 69 % (42-75); PLATELET COUNT 274 10^3/uL (130-400); RED CELL DISTRIBUTION WIDTH 13.2 % (10.0-14.5); WHITE BLOOD COUNT 5.6 10^3/uL (4.3-11.0)
[2017-03-01 11:38] LABS: ALANINE AMINOTRANSFERASE 25 U/L (0-55); ALBUMIN 4.3 GM/DL (3.2-4.5); ALKALINE PHOSPHATASE 80 U/L (40-136); BILIRUBIN,TOTAL 0.5 MG/DL (0.1-1.0); BUN/CREATININE RATIO 16; CARBON DIOXIDE 30 MMOL/L (21-32); CHLORIDE 104 MMOL/L (98-107); CREATININE SERUM 0.88 MG/DL (0.60-1.30); GFR ESTIMATED > 60; GLUCOSE 135 MG/DL (70-105); POTASSIUM 4.3 MMOL/L (3.6-5.0); SODIUM 141 MMOL/L (135-145)
== END 2017-05-24 11:11 | disposition home or self-care (01) ==
LOC: ONC 09:20
PROVIDERS: ATTEND Internal Medicine Hematology & Oncology
DX: C50.412 Malignant neoplasm of upper-outer quadrant of left female breast (principal); C79.51 Secondary malignant neoplasm of bone; E55.9 Vitamin D deficiency, unspecified; Z79.818 Long term (current) use of other agents affecting estrogen receptors and estrogen levels
CPT/HCPCS: 36415; 80053; 82306; 85025; 86300; 96372; 96402

== ENCOUNTER → 2017-08-08 | Outpatient (CLI) | payer BC ==
[~2017-08-08] MED LIST changes: +BARIUM SUSPENSION 2.1% (VANILLA SILQ) 450 ML PO ONE; +CATHETER FLUSH 10 ML SYR IV PRN; -DENOSUMAB 120 MG/1.7 ML (XGEVA) SQ SCH; -FULVESTRANT 250 MG/5 ML SYR (CANCER CENTER) IM SCH; +IOHEXOL 350 MG/ML 100 ML (OMNIPAQUE 350) VIAL IV ONE; +NS 100 ML (IVPB) BAG IV ONE
[2017-08-08] MEDS: CATHETER FLUSH 10 ML SYR IV PRN ×2 (10:42→10:50)
--- NOTE | 2017-08-08 13:24 | Diagnostic Imaging Report ---
PROCEDURE: CT chest and abdomen with contrast. TECHNIQUE: Multiple contiguous axial images were obtained through the chest and abdomen after the administration of intravenous contrast. INDICATION: Left breast carcinoma. FINDINGS: The previous CT chest and abdomen exam of 03/30/17 failed to show any sign of an acute cardiopulmonary abnormality. On this exam, the heart is enlarged but stable. The aorta is not abnormally dilated and there is no sign of dissection. There is no defect within the pulmonary arteries to indicate a pulmonary embolus either. There is no mediastinal or hilar adenopathy. The right lobe of the thyroid seems similar to the prior exam. The left lobe is not well visualized. The lungs are generally clear. There is no sign of failure, pneumonia or pleural effusion. The 6.0 x 6.2 cm hiatal hernia seen on the previous study is again noted. As on the prior exam, there is a persistent area of increased density in the left breast. This may be related to the patient's diagnosis of carcinoma of the left breast. According to our records, the patient has not had a mammogram. If the patient has had a recent (within the last year) mammogram elsewhere, then no additional imaging will be necessary. However, if the patient has not had a recent mammogram, then mammography would be recommended. There is no abnormality of the right breast. The sections through the abdomen show that the liver is homogeneous and not enlarged. The spleen, pancreas, adrenals, gallbladder, kidneys, aorta and inferior vena cava are unremarkable for an acute abnormality. The stomach is partially filled with oral contrast and consequently difficult to assess. There is no mass or free fluid within the abdomen and there is no suspicious adenopathy. The bone windows show no sign of a fracture or of a destructive lesion. IMPRESSION: 1. There is no acute abnormality of the chest or abdomen. There is no sign of neoplastic disease either. 2. The area of increased density within the left breast is of uncertain etiology. Considerations and recommendations as above. 3. The left lobe of the thyroid is not visualized and may be surgically absent. 4. There is a large hiatal hernia. Dictated by: Dictated on workstation # [id number]
--- NOTE | 2017-08-08 17:26 | Diagnostic Imaging Report ---
EXAMINATION: Whole body bone scan. INDICATION: Breast cancer. TECHNIQUE: This study was performed following administration of 26.4 mCi of 99m-technetium MDP. Anterior and posterior whole-body images were obtained. Spot images of the thorax and calvarium in the lateral projection were also performed. FINDINGS: The previous whole body bone scan performed on 03/30/2017 failed to show any abnormal uptake that would suggest metastatic disease. On this study, there is still no area of increased or decreased activity to indicate metastatic disease. As noted on the prior exam, there is abnormal activity along the medial aspect of the right knee joint. Most likely, this is degenerative in nature. There is a photopenic defect in the region of the left hip. By history, the patient has had a prior total hip prosthesis in this area which has been removed. There is excretion of the radiotracer by both kidneys. IMPRESSION: The appearance of the bone scan is stable when compared to the prior exam. There is no new area of increased or decreased activity to suggest neoplastic disease. Dictated by: Dictated on workstation # [id number]
== END ==
LOC: CARD 10:29
PROVIDERS: ATTEND Nurse Practitioner Adult Health
DX: C50.412 Malignant neoplasm of upper-outer quadrant of left female breast (principal); C79.51 Secondary malignant neoplasm of bone
CPT/HCPCS: 71260; 74160; 78306

== ENCOUNTER 2017-08-17 09:49 | Outpatient (RCR) | payer BC ==
[2017-05-24 11:40] LABS: BASOPHILS % (AUTO) 0 % (0-10); EOSINOPHILS # (AUTO) 0.2 10^3/uL (0.0-0.3); EOSINOPHILS % (AUTO) 4 % (0-10); HEMATOCRIT 42 % (35-52); LYMPHOCYTES % (AUTO) 20 % (12-44); MEAN CORPUSCULAR HEMOGLOBIN 29 PG (25-34); MEAN CORPUSCULAR HGB CONC 33 G/DL (32-36); MEAN CORPUSCULAR VOLUME 88 FL (80-99); MEAN PLATELET VOLUME 9.1 FL (7.4-10.4); MONOCYTES # (AUTO) 0.5 X 10^3 (0.0-1.0); MONOCYTES % (AUTO) 9 % (0-12); NEUTROPHILS # (AUTO) 3.5 X 10^3 (1.8-7.8); NEUTROPHILS % (AUTO) 68 % (42-75); PLATELET COUNT 267 10^3/uL (130-400); RED BLOOD COUNT 4.76 10^6/uL (4.35-5.85); RED CELL DISTRIBUTION WIDTH 13.2 % (10.0-14.5); WHITE BLOOD COUNT 5.2 10^3/uL (4.3-11.0)
[2017-05-24 11:57] LABS: ALANINE AMINOTRANSFERASE 27 U/L (0-55); ALBUMIN 4.3 GM/DL (3.2-4.5); ALKALINE PHOSPHATASE 69 U/L (40-136); BILIRUBIN,TOTAL 0.6 MG/DL (0.1-1.0); BUN/CREATININE RATIO 19; CALCIUM 9.3 MG/DL (8.5-10.1); CARBON DIOXIDE 25 MMOL/L (21-32); CHLORIDE 104 MMOL/L (98-107); CREATININE SERUM 0.74 MG/DL (0.60-1.30); GFR ESTIMATED > 60; GLUCOSE 91 MG/DL (70-105); SODIUM 138 MMOL/L (135-145); TOTAL PROTEIN 7.7 GM/DL (6.4-8.2)
[2017-07-19 09:47] LABS: BASOPHILS % (AUTO) 0 % (0-10); EOSINOPHILS # (AUTO) 0.3 10^3/uL (0.0-0.3); EOSINOPHILS % (AUTO) 4 % (0-10); HEMATOCRIT 40 % (35-52); HEMOGLOBIN 13.6 G/DL (11.5-16.0); LYMPHOCYTES # (AUTO) 1.2 X 10^3 (1.0-4.0); LYMPHOCYTES % (AUTO) 18 % (12-44); MEAN CORPUSCULAR HEMOGLOBIN 30 PG (25-34); MEAN CORPUSCULAR HGB CONC 34 G/DL (32-36); MEAN CORPUSCULAR VOLUME 89 FL (80-99); MEAN PLATELET VOLUME 9.7 FL (7.4-10.4); MONOCYTES # (AUTO) 0.6 X 10^3 (0.0-1.0); MONOCYTES % (AUTO) 8 % (0-12); NEUTROPHILS # (AUTO) 4.7 X 10^3 (1.8-7.8); NEUTROPHILS % (AUTO) 69 % (42-75); PLATELET COUNT 273 10^3/uL (130-400); RED BLOOD COUNT 4.51 10^6/uL (4.35-5.85); RED CELL DISTRIBUTION WIDTH 13.2 % (10.0-14.5); WHITE BLOOD COUNT 6.8 10^3/uL (4.3-11.0)
[2017-07-19 10:04] LABS: ALANINE AMINOTRANSFERASE 30 U/L (0-55); ALBUMIN 4.1 GM/DL (3.2-4.5); ALKALINE PHOSPHATASE 70 U/L (40-136); BILIRUBIN,TOTAL 0.6 MG/DL (0.1-1.0); BUN/CREATININE RATIO 19; CALCIUM 9.3 MG/DL (8.5-10.1); CARBON DIOXIDE 26 MMOL/L (21-32); CHLORIDE 104 MMOL/L (98-107); CREATININE SERUM 0.78 MG/DL (0.60-1.30); GFR ESTIMATED > 60; GLUCOSE 100 MG/DL (70-105); POTASSIUM 4.4 MMOL/L (3.6-5.0); SODIUM 139 MMOL/L (135-145); TOTAL PROTEIN 7.3 GM/DL (6.4-8.2)
[~2017-08-17 09:49] MED LIST changes: -BARIUM SUSPENSION 2.1% (VANILLA SILQ) 450 ML PO ONE; -CATHETER FLUSH 10 ML SYR IV PRN; +DENOSUMAB 120 MG/1.7 ML (XGEVA) SQ SCH; +FULVESTRANT 250 MG/5 ML SYR (CANCER CENTER) IM SCH; -IOHEXOL 350 MG/ML 100 ML (OMNIPAQUE 350) VIAL IV ONE; -NS 100 ML (IVPB) BAG IV ONE
[2017-08-17 10:08] LABS: BASOPHILS % (AUTO) 1 % (0-10); EOSINOPHILS # (AUTO) 0.3 10^3/uL (0.0-0.3); EOSINOPHILS % (AUTO) 5 % (0-10); HEMATOCRIT 40 % (35-52); HEMOGLOBIN 13.4 G/DL (11.5-16.0); LYMPHOCYTES # (AUTO) 1.2 X 10^3 (1.0-4.0); LYMPHOCYTES % (AUTO) 18 % (12-44); MEAN CORPUSCULAR HEMOGLOBIN 30 PG (25-34); MEAN CORPUSCULAR HGB CONC 34 G/DL (32-36); MEAN CORPUSCULAR VOLUME 88 FL (80-99); MEAN PLATELET VOLUME 9.2 FL (7.4-10.4); MONOCYTES # (AUTO) 0.6 X 10^3 (0.0-1.0); MONOCYTES % (AUTO) 9 % (0-12); NEUTROPHILS # (AUTO) 4.4 X 10^3 (1.8-7.8); NEUTROPHILS % (AUTO) 68 % (42-75); PLATELET COUNT 280 10^3/uL (130-400); RED BLOOD COUNT 4.51 10^6/uL (4.35-5.85); RED CELL DISTRIBUTION WIDTH 13.3 % (10.0-14.5); WHITE BLOOD COUNT 6.5 10^3/uL (4.3-11.0)
[2017-08-17 10:39] LABS: ALANINE AMINOTRANSFERASE 31 U/L (0-55); ALBUMIN 4.2 GM/DL (3.2-4.5); ALKALINE PHOSPHATASE 66 U/L (40-136); BILIRUBIN,TOTAL 0.7 MG/DL (0.1-1.0); BUN/CREATININE RATIO 18; CALCIUM 9.2 MG/DL (8.5-10.1); CARBON DIOXIDE 28 MMOL/L (21-32); CHLORIDE 104 MMOL/L (98-107); GFR ESTIMATED > 60; GLUCOSE 95 MG/DL (70-105); POTASSIUM 4.2 MMOL/L (3.6-5.0); SODIUM 139 MMOL/L (135-145); TOTAL PROTEIN 7.5 GM/DL (6.4-8.2)
== END 2017-08-22 | disposition home or self-care (01) ==
LOC: ONC 09:49
PROVIDERS: ATTEND Internal Medicine Hematology & Oncology
DX: C50.412 Malignant neoplasm of upper-outer quadrant of left female breast (principal); C79.51 Secondary malignant neoplasm of bone; E55.9 Vitamin D deficiency, unspecified; Z79.818 Long term (current) use of other agents affecting estrogen receptors and estrogen levels; Z79.899 Other long term (current) drug therapy
CPT/HCPCS: 36415; 80053; 85025; 86300; 96372; 96402

== ENCOUNTER 2017-11-08 09:18 | Outpatient (RCR) | payer BC ==
[2017-10-12 09:07] LABS: BASOPHILS % (AUTO) 0 % (0-10); EOSINOPHILS # (AUTO) 0.3 10^3/uL (0.0-0.3); EOSINOPHILS % (AUTO) 5 % (0-10); HEMATOCRIT 39 % (35-52); HEMOGLOBIN 13.3 G/DL (11.5-16.0); LYMPHOCYTES # (AUTO) 1.1 X 10^3 (1.0-4.0); LYMPHOCYTES % (AUTO) 22 % (12-44); MEAN CORPUSCULAR HEMOGLOBIN 30 PG (25-34); MEAN CORPUSCULAR HGB CONC 35 G/DL (32-36); MEAN CORPUSCULAR VOLUME 88 FL (80-99); MEAN PLATELET VOLUME 9.5 FL (7.4-10.4); MONOCYTES # (AUTO) 0.5 X 10^3 (0.0-1.0); MONOCYTES % (AUTO) 9 % (0-12); NEUTROPHILS # (AUTO) 3.4 X 10^3 (1.8-7.8); NEUTROPHILS % (AUTO) 64 % (42-75); PLATELET COUNT 261 10^3/uL (130-400); RED BLOOD COUNT 4.39 10^6/uL (4.35-5.85); RED CELL DISTRIBUTION WIDTH 13.6 % (10.0-14.5); WHITE BLOOD COUNT 5.3 10^3/uL (4.3-11.0)
[2017-10-12 09:27] LABS: ALANINE AMINOTRANSFERASE 27 U/L (0-55); ALBUMIN 4.2 GM/DL (3.2-4.5); ALKALINE PHOSPHATASE 64 U/L (40-136); BILIRUBIN,TOTAL 0.7 MG/DL (0.1-1.0); BUN/CREATININE RATIO 20; CALCIUM 9.3 MG/DL (8.5-10.1); CARBON DIOXIDE 25 MMOL/L (21-32); CHLORIDE 108 MMOL/L (98-107); CREATININE SERUM 0.88 MG/DL (0.60-1.30); GFR ESTIMATED > 60; GLUCOSE 93 MG/DL (70-105); POTASSIUM 4.8 MMOL/L (3.6-5.0); SODIUM 141 MMOL/L (135-145); TOTAL PROTEIN 7.3 GM/DL (6.4-8.2)
== END 2017-12-06 10:09 | disposition home or self-care (01) ==
LOC: ONC 09:18
PROVIDERS: ATTEND Internal Medicine Hematology & Oncology
DX: C50.412 Malignant neoplasm of upper-outer quadrant of left female breast (principal); C79.51 Secondary malignant neoplasm of bone; E55.9 Vitamin D deficiency, unspecified; Z79.818 Long term (current) use of other agents affecting estrogen receptors and estrogen levels; Z79.899 Other long term (current) drug therapy
CPT/HCPCS: 36415; 80053; 82306; 85025; 86300; 96372; 96402

== ENCOUNTER 2018-01-31 10:02 | Outpatient (RCR) | payer MEDICARE, OTHER ==
[2018-01-03 09:43] LABS: BASOPHILS % (AUTO) 1 % (0-10); EOSINOPHILS # (AUTO) 0.3 10^3/uL (0.0-0.3); EOSINOPHILS % (AUTO) 5 % (0-10); HEMATOCRIT 39 % (35-52); HEMOGLOBIN 13.2 G/DL (11.5-16.0); LYMPHOCYTES # (AUTO) 1.3 X 10^3 (1.0-4.0); LYMPHOCYTES % (AUTO) 25 % (12-44); MEAN CORPUSCULAR HEMOGLOBIN 30 PG (25-34); MEAN CORPUSCULAR HGB CONC 34 G/DL (32-36); MEAN CORPUSCULAR VOLUME 89 FL (80-99); MONOCYTES # (AUTO) 0.5 X 10^3 (0.0-1.0); MONOCYTES % (AUTO) 10 % (0-12); NEUTROPHILS # (AUTO) 3.1 X 10^3 (1.8-7.8); NEUTROPHILS % (AUTO) 59 % (42-75); PLATELET COUNT 265 10^3/uL (130-400); RED BLOOD COUNT 4.37 10^6/uL (4.35-5.85); RED CELL DISTRIBUTION WIDTH 13.4 % (10.0-14.5); WHITE BLOOD COUNT 5.2 10^3/uL (4.3-11.0)
[2018-01-03 10:01] LABS: ALANINE AMINOTRANSFERASE 25 U/L (0-55); ALBUMIN 4.4 GM/DL (3.2-4.5); ALKALINE PHOSPHATASE 74 U/L (40-136); BILIRUBIN,TOTAL 0.6 MG/DL (0.1-1.0); BUN/CREATININE RATIO 21; CALCIUM 10.2 MG/DL (8.5-10.1); CARBON DIOXIDE 27 MMOL/L (21-32); CHLORIDE 103 MMOL/L (98-107); CREATININE SERUM 0.85 MG/DL (0.60-1.30); GFR ESTIMATED > 60; GLUCOSE 94 MG/DL (70-105); POTASSIUM 4.6 MMOL/L (3.6-5.0); SODIUM 140 MMOL/L (135-145); TOTAL PROTEIN 7.6 GM/DL (6.4-8.2)
[2018-02-28] MEDS ORDERED: DENOSUMAB 120 MG/1.7 ML (XGEVA) SQ SCH (08:30)
[2018-02-28 09:59] LABS: BUN/CREATININE RATIO 20; CALCIUM 9.6 MG/DL (8.5-10.1); CARBON DIOXIDE 26 MMOL/L (21-32); CHLORIDE 106 MMOL/L (98-107); CREATININE SERUM 0.84 MG/DL (0.60-1.30); GFR ESTIMATED > 60; GLUCOSE 101 MG/DL (70-105); POTASSIUM 4.5 MMOL/L (3.6-5.0); SODIUM 139 MMOL/L (135-145)
== END 2018-02-28 09:25 | disposition home or self-care (01) ==
LOC: ONC 10:02
PROVIDERS: ATTEND Internal Medicine Hematology & Oncology
DX: C50.412 Malignant neoplasm of upper-outer quadrant of left female breast (principal); C79.51 Secondary malignant neoplasm of bone; E55.9 Vitamin D deficiency, unspecified; Z79.818 Long term (current) use of other agents affecting estrogen receptors and estrogen levels; Z79.899 Other long term (current) drug therapy
CPT/HCPCS: 80048; 80053; 82306; 85025; 86300; 96372; 96402

== ENCOUNTER → 2018-03-22 | Outpatient (CLI) | payer MEDICARE, OTHER ==
[~2018-03-22] MED LIST changes: +BARIUM SUSPENSION 2.1% (VANILLA SILQ) 450 ML PO ONE; +CATHETER FLUSH 10 ML SYR IV PRN; -DENOSUMAB 120 MG/1.7 ML (XGEVA) SQ SCH; -FULVESTRANT 250 MG/5 ML SYR (CANCER CENTER) IM SCH; +IOHEXOL 350 MG/ML 100 ML (OMNIPAQUE 350) VIAL IV ONE; +NS 250 ML (IVPB) BAG IV ONE; +RECEIVED CONTRAST (Hold Metformin) IV SCH
--- NOTE | 2018-03-22 11:15 | Diagnostic Imaging Report ---
PROCEDURE: CT chest and abdomen with contrast. TECHNIQUE: Multiple contiguous axial images were obtained through the chest and abdomen after the administration of intravenous contrast. INDICATION: Left breast carcinoma and bone metastases. COMPARISON: Comparison is made with prior CT from 08/08/2017. CT OF CHEST: No axillary lymphadenopathy is detected. No internal mammary lymphadenopathy is seen. Mediastinum and emma are unremarkable. No pericardial or pleural fluid is seen. There is a large hiatal hernia. Calcified granuloma right upper lobe is again noted. No noncalcified pulmonary nodules are seen. No masses or infiltrates are detected. No definite osteolytic or blastic lesions are seen. IMPRESSION: Stable CT of the chest since the exam from 08/08/2017. There is no evidence of thoracic lymphadenopathy or pulmonary metastatic disease. CT OF ABDOMEN: No discrete liver mass is identified. The gallbladder is unremarkable. The pancreas and spleen are unremarkable. No adrenal mass is detected. The right kidney is unremarkable. The small cortical low density involving the posterior left kidney is stable and suggestive of a cyst. The aorta is calcified but non-aneurysmal. No central retroperitoneal or mesenteric lymphadenopathy is identified. The small and large bowel loops are normal in caliber. There is no ascites. No osteolytic or blastic lesions are seen. IMPRESSION: Stable CT of the abdomen since prior exam from 08/08/2017. There is no evidence of abdominal lymphadenopathy or metastatic disease. Dictated by: Dictated on workstation # [id number]
--- NOTE | 2018-03-22 14:17 | Diagnostic Imaging Report ---
INDICATION: Breast carcinoma. TECHNIQUE: The patient was administered 26.9 mCi technetium 99m MDP intravenously and whole body imaging was performed after three-hour delay. COMPARISON: Correlation is made with prior whole body bone scan from 08/08/2017. FINDINGS: Normal uptake of the radiolabeled phosphate into the axial and appendicular skeleton is noted. There is uptake by both kidneys with excretion into the urinary bladder. Degenerative changes involving the medial compartment of the right knee are again seen. There is photopenia overlying the left hip, consistent with left hip arthroplasty. No new foci of tracer accumulation are seen to suggest osseous metastatic disease. IMPRESSION: Stable whole body bone scan with no scintigraphic evidence of osseous metastatic disease. Dictated by: Dictated on workstation # [id number]
== END ==
LOC: CARD 09:55
PROVIDERS: ATTEND Nurse Practitioner Adult Health
DX: C50.412 Malignant neoplasm of upper-outer quadrant of left female breast (principal); C79.51 Secondary malignant neoplasm of bone; Z79.818 Long term (current) use of other agents affecting estrogen receptors and estrogen levels
CPT/HCPCS: 71260; 74160; 78306

== ENCOUNTER 2018-05-23 09:24 | Outpatient (RCR) | payer MEDICARE, OTHER ==
[2018-03-28 10:16] LABS: BASOPHILS % (AUTO) 1 % (0-10); EOSINOPHILS # (AUTO) 0.2 10^3/uL (0.0-0.3); EOSINOPHILS % (AUTO) 4 % (0-10); HEMATOCRIT 43 % (35-52); HEMOGLOBIN 14.3 G/DL (11.5-16.0); LYMPHOCYTES # (AUTO) 1.5 X 10^3 (1.0-4.0); LYMPHOCYTES % (AUTO) 25 % (12-44); MEAN CORPUSCULAR HEMOGLOBIN 29 PG (25-34); MEAN CORPUSCULAR HGB CONC 33 G/DL (32-36); MEAN CORPUSCULAR VOLUME 88 FL (80-99); MEAN PLATELET VOLUME 9.4 FL (7.4-10.4); MONOCYTES # (AUTO) 0.5 X 10^3 (0.0-1.0); MONOCYTES % (AUTO) 9 % (0-12); NEUTROPHILS # (AUTO) 3.9 X 10^3 (1.8-7.8); NEUTROPHILS % (AUTO) 63 % (42-75); PLATELET COUNT 302 10^3/uL (130-400); RED BLOOD COUNT 4.91 10^6/uL (4.35-5.85); RED CELL DISTRIBUTION WIDTH 13.6 % (10.0-14.5); WHITE BLOOD COUNT 6.3 10^3/uL (4.3-11.0)
[2018-03-28 10:53] LABS: ALANINE AMINOTRANSFERASE 25 U/L (0-55); ALBUMIN 4.6 GM/DL (3.2-4.5); ALKALINE PHOSPHATASE 77 U/L (40-136); BILIRUBIN,TOTAL 0.6 MG/DL (0.1-1.0); BUN/CREATININE RATIO 19; CALCIUM 10.1 MG/DL (8.5-10.1); CARBON DIOXIDE 27 MMOL/L (21-32); CHLORIDE 103 MMOL/L (98-107); GFR ESTIMATED > 60; GLUCOSE 96 MG/DL (70-105); POTASSIUM 4.7 MMOL/L (3.6-5.0); SODIUM 139 MMOL/L (135-145); TOTAL PROTEIN 8.1 GM/DL (6.4-8.2)
[~2018-05-23 09:24] MED LIST changes: -BARIUM SUSPENSION 2.1% (VANILLA SILQ) 450 ML PO ONE; -CATHETER FLUSH 10 ML SYR IV PRN; +DENOSUMAB 120 MG/1.7 ML (XGEVA) SQ SCH; +FULVESTRANT 250 MG/5 ML SYR (CANCER CENTER) IM SCH; -IOHEXOL 350 MG/ML 100 ML (OMNIPAQUE 350) VIAL IV ONE; -NS 250 ML (IVPB) BAG IV ONE; -RECEIVED CONTRAST (Hold Metformin) IV SCH
== END 2018-05-29 | disposition home or self-care (01) ==
LOC: ONC 09:24
PROVIDERS: ATTEND Internal Medicine Hematology & Oncology
DX: C50.412 Malignant neoplasm of upper-outer quadrant of left female breast (principal); C79.51 Secondary malignant neoplasm of bone; E55.9 Vitamin D deficiency, unspecified; Z79.818 Long term (current) use of other agents affecting estrogen receptors and estrogen levels; Z79.899 Other long term (current) drug therapy
CPT/HCPCS: 36415; 80048; 80053; 85025; 86300; 96372; 96402

== ENCOUNTER 2018-06-29 05:36 | Outpatient (CLI) | payer MEDICARE, OTHER ==
[~2018-06-29] VITALS: Ht 170.2 cm; Wt 90.7 kg
[2018-06-29] MEDS ORDERED: MV-M1TAB57 PO (12:27)
[2018-06-29] MEDS ORDERED: DENO120V SQ (12:27)
[2018-06-29] MEDS ORDERED: CHOL500044 PO (12:27)
[2018-06-29] MEDS ORDERED: FULV250D2 IM (12:27)
[2018-06-29] MEDS ORDERED: VNL75T PO (12:27)
[2018-06-29] MEDS ORDERED: CLON0.1T PO (12:27)
[2018-06-29] MEDS ORDERED: LOSA100T57 PO (12:27)
[2018-06-29] MEDS ORDERED: ANAS1TAB7 PO (12:27)
[2018-06-29] MEDS ORDERED: GABA-488 PO (12:27)
[2018-06-29] MEDS ORDERED: LEVO125T6 PO (12:27)
== END 2018-06-29 12:35 | disposition home or self-care (01) ==
LOC: PREOP 05:36
PROVIDERS: ATTEND Surgery
DX: Z01.818 Encounter for other preprocedural examination (principal)

== ENCOUNTER 2018-07-04 11:22 | Day surgery (SDC) | payer MEDICARE, OTHER ==
[~2018-07-04] VITALS: Ht 170.2 cm; Wt 90.7 kg
[~2018-07-04 11:22] MED LIST changes: +ANAS1TAB7 PO; +CHOL500044 PO; +CLON0.1T PO; +DENO120V SQ; -DENOSUMAB 120 MG/1.7 ML (XGEVA) SQ SCH; +FULV250D2 IM; -FULVESTRANT 250 MG/5 ML SYR (CANCER CENTER) IM SCH; +GABA-488 PO; +LEVO125T6 PO; +LOSA100T57 PO; +MV-M1TAB57 PO; +VNL75T PO
[2018-07-04 11:30] VITALS: BP 148/78
[2018-07-04] MEDS ORDERED: LACTATED RINGERS 1,000 ML IV STA (11:45)
[2018-07-04] MEDS ORDERED: LACTATED RINGERS 1,000 ML IV ONE (11:50)
[2018-07-04] MEDS ORDERED: PROPOFOL INJECTION 50 ML IV ONE (13:59)
[2018-07-04] MEDS ORDERED: MIDAZOLAM 2 MG/2 ML (VERSED) VIAL ONE (14:00)
--- NOTE | 2018-07-04 14:10 | Progress Note-Pre Operative ---
Pre-Operative Progress Note H&P Reviewed The H&P was reviewed, patient examined and no changes noted. Time Seen by Provider: 14:03 Date H&P Reviewed: Jul 04, 2018 Time H&P Reviewed: 14:04 Pre-Operative Diagnosis: screening colonoscopy JUANA ACOSTA DO Jul 04, 2018 14:10
--- NOTE | 2018-07-04 14:36 | Progress Note-Post Operative ---
Post-Operative Progess Note Surgeon (s)/Steam Hoist Operator (s) Surgeon JUANA ACOSTA DO Steam Hoist Operator: none Pre-Operative Diagnosis screening colonoscopy Post-Operative Diagnosis Polyp Diverticula Int Hemorrhoids Procedure & Operative Findings Date of Procedure 07/04/18 Procedure Performed/Findings Colon with cold bx Anesthesia Type IV sedation by CUSTOM SHOE DESIGNER AND MAKER Estimated Blood Loss Estimated blood loss (mL): scant Specimens/Packing Specimens Removed Rectal polyp JUANA ACOSTA DO Jul 04, 2018 14:36
--- NOTE | 2018-07-04 14:38 | Endoscopy Discharge Instruct ---
Endo Procedure/Findings Findings 1.: Polyp 2.: Diverticulosis 3.: Internal Hemorrhoids Discharge Instructions - Activity: You might feel a little sleepy until tomorrow. This is due to the medicine you received to relax you. Until tomorrow, you should: NOT drive a car, operate machinery or power tools. NOT drink any alcoholic beverages. NOT make any important decisions or sign importortant papers. Do not return to work until tomorrow, unless otherwise instructed. Resume previous activities tomorrow. Diet: Start by taking liquids. If you tolerate liquids, advance to solid food. Make an appointment for one week Notify Physician - If you experience excessive bleeding, unusual abdominal pain, fever, or chest pain, contact your doctor immediately. Follow-Up: - I have received and understand the above instructions and will call my doctor if I have any further questions. Patient Signature Date Nurse Signature Other (Relationship) JUANA ACOSTA DO Jul 04, 2018 14:38
--- NOTE | 2018-07-04 14:44 | Anesthesia-General Post-Op ---
MAC Patient Condition Mental Status/LOC: Same as Preop Cardiovascular: Satisfactory Nausea/Vomiting: Absent Respiratory: Satisfactory Pain: Controlled Complications: Absent Post Op Complications Complications None Follow Up Care/Instructions Patient Instructions None needed. Anesthesiology Discharge Order Discharge Order Patient is doing well, no complaints, stable vital signs, no apparent adverse anesthesia problems. ROZ HERNANDEZ DO Jul 04, 2018 14:44
[2018-07-04 15:05] VITALS: BP 136/74
[2018-07-04 15:35] VITALS: BP 169/77
[2018-07-04 15:40] VITALS: BP 169/77
--- NOTE | 2018-07-04 22:22 | OPERATIVE REPORT ---
DATE OF SERVICE: PREOPERATIVE DIAGNOSIS: Screening colonoscopy. POSTOPERATIVE DIAGNOSES: 1. Colon polyp. 2. Diverticula. 3. Internal hemorrhoids. PROCEDURE: Colonoscopy with cold biopsy. SURGEON: Jeb Deluca DO CHARTER BOAT CAPTAIN: None. ANESTHESIA: IV sedation by DIRECTOR OF DISTRIBUTION. SPECIMEN: Polyp from the sigmoid colon. BLOOD LOSS: Scant. FLUIDS: Per anesthesia. POSTOPERATIVE CONDITION: Stable. INDICATION FOR PROCEDURE: The patient is a 67-year-old female who has never had a colonoscopy and needs one for screening. FINDINGS: The patient had one small polyp in the sigmoid colon. She had some diverticula in the sigmoid and descending colon and she had some small internal hemorrhoids. No other obvious pathology. PROCEDURE NOTE: After informed consent was obtained, the patient was brought to the endoscopy suite, placed in the bed left lateral decubitus position. She was administered IV sedation by the DIRECTOR OF DISTRIBUTION who then monitored her vitals the entire time, heart rate, blood pressure, pulse ox and the scope was inserted, pushed in all the way and noted some diverticula. A picture was taken, able to get all the way to cecum, took a picture of appendiceal orifice, noted the ileocecal valve and then slowly withdrew the scope insufflating to look circumferentially at the gallardo looking at the cecum, up the ascending colon to hepatic flexure, then down the transverse colon, the splenic flexure into the descending colon and down into the sigmoid, again saw some diverticula of the descending and sigmoid colon and down just into the rectum, saw small polyp, took a picture of this and then did a cold biopsy, then continued down in the rectal vault. Retroflexed in rectal vault, saw some minimal internal hemorrhoids, took a picture of this and then removed the scope. The patient tolerated procedure. She was recovered in the endoscopy suite. Job ID: [id number] DocumentID: [id number] Dictated Date: 07/04/2018 14:35:34 Tool And Die Repairer Date: 07/04/2018 22:21:25 Dictated By: JEB DELUCA DO
== END 2018-07-04 15:40 | disposition home or self-care (01) ==
LOC: ENDO 11:22
PROVIDERS: ATTEND Surgery
DX: Z12.11 Encounter for screening for malignant neoplasm of colon (principal); K63.5 Polyp of colon; K57.30 Diverticulosis of large intestine without perforation or abscess without bleeding; K64.8 Other hemorrhoids; K63.89 Other specified diseases of intestine; I10 Essential (primary) hypertension; K21.9 Gastro-esophageal reflux disease without esophagitis; E55.9 Vitamin D deficiency, unspecified; Z88.0 Allergy status to penicillin; Z85.3 Personal history of malignant neoplasm of breast; Z92.3 Personal history of irradiation; Z79.899 Other long term (current) drug therapy

== ENCOUNTER 2018-09-12 11:27 | Outpatient (RCR) | payer MEDICARE, OTHER ==
[2018-06-20 10:43] LABS: BASOPHILS % (AUTO) 0 % (0-10); EOSINOPHILS # (AUTO) 0.2 10^3/uL (0.0-0.3); EOSINOPHILS % (AUTO) 3 % (0-10); HEMATOCRIT 41 % (35-52); HEMOGLOBIN 13.8 G/DL (11.5-16.0); LYMPHOCYTES # (AUTO) 1.3 X 10^3 (1.0-4.0); LYMPHOCYTES % (AUTO) 22 % (12-44); MEAN CORPUSCULAR HEMOGLOBIN 30 PG (25-34); MEAN CORPUSCULAR HGB CONC 34 G/DL (32-36); MEAN CORPUSCULAR VOLUME 89 FL (80-99); MEAN PLATELET VOLUME 9.2 FL (7.4-10.4); MONOCYTES # (AUTO) 0.5 X 10^3 (0.0-1.0); MONOCYTES % (AUTO) 8 % (0-12); NEUTROPHILS # (AUTO) 3.9 X 10^3 (1.8-7.8); NEUTROPHILS % (AUTO) 66 % (42-75); PLATELET COUNT 282 10^3/uL (130-400); RED CELL DISTRIBUTION WIDTH 13.6 % (10.0-14.5); WHITE BLOOD COUNT 5.9 10^3/uL (4.3-11.0)
[2018-06-20 11:06] LABS: ALANINE AMINOTRANSFERASE 31 U/L (0-55); ALBUMIN 4.3 GM/DL (3.2-4.5); ALKALINE PHOSPHATASE 78 U/L (40-136); BILIRUBIN,TOTAL 0.4 MG/DL (0.1-1.0); BUN/CREATININE RATIO 19; CALCIUM 10.2 MG/DL (8.5-10.1); CARBON DIOXIDE 27 MMOL/L (21-32); CHLORIDE 105 MMOL/L (98-107); CREATININE SERUM 0.81 MG/DL (0.60-1.30); GFR ESTIMATED > 60; GLUCOSE 70 MG/DL (70-105); POTASSIUM 4.3 MMOL/L (3.6-5.0); SODIUM 141 MMOL/L (135-145); TOTAL PROTEIN 7.7 GM/DL (6.4-8.2)
[2018-09-12 11:13] LABS: BASOPHILS % (AUTO) 0 % (0-10); EOSINOPHILS # (AUTO) 0.2 10^3/uL (0.0-0.3); EOSINOPHILS % (AUTO) 2 % (0-10); HEMATOCRIT 39 % (35-52); HEMOGLOBIN 13.2 G/DL (11.5-16.0); LYMPHOCYTES # (AUTO) 1.3 X 10^3 (1.0-4.0); LYMPHOCYTES % (AUTO) 21 % (12-44); MEAN CORPUSCULAR HEMOGLOBIN 29 PG (25-34); MEAN CORPUSCULAR HGB CONC 34 G/DL (32-36); MEAN CORPUSCULAR VOLUME 88 FL (80-99); MEAN PLATELET VOLUME 9.4 FL (7.4-10.4); MONOCYTES # (AUTO) 0.5 X 10^3 (0.0-1.0); MONOCYTES % (AUTO) 8 % (0-12); NEUTROPHILS # (AUTO) 4.2 X 10^3 (1.8-7.8); NEUTROPHILS % (AUTO) 68 % (42-75); PLATELET COUNT 295 10^3/uL (130-400); RED CELL DISTRIBUTION WIDTH 13.5 % (10.0-14.5); WHITE BLOOD COUNT 6.2 10^3/uL (4.3-11.0)
[~2018-09-12 11:27] MED LIST changes: +DENOSUMAB 120 MG/1.7 ML (XGEVA) SQ SCH; +FULVESTRANT 250 MG/5 ML SYR (CANCER CENTER) IM SCH
[2018-09-12 11:28] LABS: ALANINE AMINOTRANSFERASE 27 U/L (0-55); ALBUMIN 4.1 GM/DL (3.2-4.5); ALKALINE PHOSPHATASE 76 U/L (40-136); BILIRUBIN,TOTAL 0.5 MG/DL (0.1-1.0); BUN/CREATININE RATIO 14; CALCIUM 9.4 MG/DL (8.5-10.1); CARBON DIOXIDE 26 MMOL/L (21-32); CHLORIDE 108 MMOL/L (98-107); CREATININE SERUM 0.81 MG/DL (0.60-1.30); GFR ESTIMATED > 60; GLUCOSE 109 MG/DL (70-105); POTASSIUM 4.3 MMOL/L (3.6-5.0); SODIUM 142 MMOL/L (135-145); TOTAL PROTEIN 7.4 GM/DL (6.4-8.2)
== END 2018-09-18 | disposition home or self-care (01) ==
LOC: ONC 11:27
PROVIDERS: ATTEND Internal Medicine Hematology & Oncology
DX: C50.412 Malignant neoplasm of upper-outer quadrant of left female breast (principal); C79.51 Secondary malignant neoplasm of bone; E55.9 Vitamin D deficiency, unspecified; Z79.818 Long term (current) use of other agents affecting estrogen receptors and estrogen levels; Z79.899 Other long term (current) drug therapy
CPT/HCPCS: 36415; 80053; 85025; 86300; 96372; 96402

== ENCOUNTER 2019-01-02 09:59 | Outpatient (RCR) | payer MEDICARE, OTHER ==
[2018-12-04 10:23] LABS: ALANINE AMINOTRANSFERASE 21 U/L (0-55); ALBUMIN 4.4 GM/DL (3.2-4.5); ALKALINE PHOSPHATASE 84 U/L (40-136); BILIRUBIN,TOTAL 0.5 MG/DL (0.1-1.0); BUN/CREATININE RATIO 15; CALCIUM 9.2 MG/DL (8.5-10.1); CARBON DIOXIDE 27 MMOL/L (21-32); CHLORIDE 104 MMOL/L (98-107); CREATININE SERUM 0.85 MG/DL (0.60-1.30); GFR ESTIMATED > 60; GLUCOSE 96 MG/DL (70-105); POTASSIUM 4.2 MMOL/L (3.6-5.0); SODIUM 138 MMOL/L (135-145); TOTAL PROTEIN 7.6 GM/DL (6.4-8.2)
[2018-12-04 15:49] LABS: BASOPHILS % (AUTO) 0 % (0-10); EOSINOPHILS # (AUTO) 0.2 10^3/uL (0.0-0.3); EOSINOPHILS % (AUTO) 5 % (0-10); HEMATOCRIT 41 % (35-52); HEMOGLOBIN 13.5 G/DL (11.5-16.0); LYMPHOCYTES # (AUTO) 1.1 X 10^3 (1.0-4.0); LYMPHOCYTES % (AUTO) 21 % (12-44); MEAN CORPUSCULAR HEMOGLOBIN 28 PG (25-34); MEAN CORPUSCULAR HGB CONC 33 G/DL (32-36); MEAN CORPUSCULAR VOLUME 87 FL (80-99); MEAN PLATELET VOLUME 9.8 FL (7.4-10.4); MONOCYTES # (AUTO) 0.6 X 10^3 (0.0-1.0); MONOCYTES % (AUTO) 11 % (0-12); NEUTROPHILS # (AUTO) 3.4 X 10^3 (1.8-7.8); NEUTROPHILS % (AUTO) 64 % (42-75); PLATELET COUNT 290 10^3/uL (130-400); RED CELL DISTRIBUTION WIDTH 13.6 % (10.0-14.5); WHITE BLOOD COUNT 5.3 10^3/uL (4.3-11.0)
== END 2019-01-08 | disposition home or self-care (01) ==
LOC: ONC 09:59
PROVIDERS: ATTEND Internal Medicine Hematology & Oncology
DX: C50.412 Malignant neoplasm of upper-outer quadrant of left female breast (principal); C79.51 Secondary malignant neoplasm of bone; E55.9 Vitamin D deficiency, unspecified; Z79.818 Long term (current) use of other agents affecting estrogen receptors and estrogen levels; Z79.899 Other long term (current) drug therapy
CPT/HCPCS: 36415; 80053; 85025; 86300; 96372; 96402

== ENCOUNTER → 2019-02-20 | Outpatient (CLI) | payer MEDICARE, OTHER ==
[~2019-02-20] MED LIST changes: +CATHETER FLUSH 10 ML SYR IV PRN; -DENOSUMAB 120 MG/1.7 ML (XGEVA) SQ SCH; -FULVESTRANT 250 MG/5 ML SYR (CANCER CENTER) IM SCH; +REGADENOSON 0.4 MG/5 ML SYR (LEXISCAN) IV ONE
[2019-02-20 10:38] LABS: BUN/CREATININE RATIO 23; CREATININE SERUM 0.79 MG/DL (0.60-1.30); GFR ESTIMATED > 60
--- NOTE | 2019-02-20 20:02 | STRESS TEST ---
DATE OF SERVICE: 02/20/2019 LEXISCAN MYOVIEW STRESS TEST REPORT REFERRING PHYSICIAN: Dr. Quan Murillo Baseline heart rate is 78. Baseline blood pressure 175/74. Baseline EKG is sinus rhythm with no ischemic changes. In summary, the patient was injected with 10.97 mCi of technetium-99 Myoview and the resting images were obtained. Then, the patient received 0.4 mg of Lexiscan followed by 29.0 mCi of technetium-99 Myoview. Throughout the test, there were no EKG changes. The resting and stress images were reviewed and compared in the short axis, horizontal long axis, and vertical long axis views. Review of the images showed breast attenuation with reversible ischemia involving the whole anterior wall and anterolateral wall and anterior septum. SSS is 9, SDS 9, TID value 1.09. On the gated images, the left ventricle appeared to be in normal size with normal contractility. Calculated ejection fraction 57%. CONCLUSION: 1. The patient tolerated Lexiscan well. 2. Breast attenuation with reversible ischemia involving the whole anterior wall and anterolateral wall and anterior septum. 3. Normal left ventricular size with normal contractility. Calculated ejection fraction 57%. Job ID: [id number] DocumentID: [id number] Dictated Date: 02/20/2019 14:50:50 Bulb Brander Date: 02/20/2019 15:11:09 Dictated By: THOMAS HEWITT MD
== END ==
LOC: CARD 09:24
PROVIDERS: ATTEND Internal Medicine Cardiovascular Disease
DX: I65.23 Occlusion and stenosis of bilateral carotid arteries (principal); E78.2 Mixed hyperlipidemia; I10 Essential (primary) hypertension; E05.00 Thyrotoxicosis with diffuse goiter without thyrotoxic crisis or storm; Z82.49 Family history of ischemic heart disease and other diseases of the circulatory system
CPT/HCPCS: 36415; 78452; 82565; 84520; 93017

== ENCOUNTER 2019-03-06 06:40 | Day surgery (SDC) | payer MEDICARE, OTHER ==
[~2019-03-06] VITALS: Ht 170 cm; Wt 100.7 kg
[2019-03-06] VITALS (12 sets, daily range): BP systolic 152–184; BP diastolic 69–88
[~2019-03-06 06:40] MED LIST changes: -CATHETER FLUSH 10 ML SYR IV PRN; -REGADENOSON 0.4 MG/5 ML SYR (LEXISCAN) IV ONE
[2019-03-06] MEDS ORDERED: NS IV 1000 ML 1,000 ML ONE (06:49)
[2019-03-06] MEDS ORDERED: LIDOCAINE 1% INJ 20 ML 20 ML VIAL ONE (06:49)
[2019-03-06] MEDS ORDERED: HEParin (CATH LAB) 2,000 ML IV ONE (06:49)
[2019-03-06] MEDS ORDERED: NS IV 1000 ML 1,000 ML IV SCH ×2 (07:00→08:27)
[2019-03-06 07:21] LABS: HEMOGLOBIN 12.7 G/DL (11.5-16.0); MEAN PLATELET VOLUME 9.1 FL (7.4-10.4); RED CELL DISTRIBUTION WIDTH 14.4 % (10.0-14.5); WHITE BLOOD COUNT 6.3 10^3/uL (4.3-11.0)
[2019-03-06 07:26] LABS: PROTHROMBIN TIME PATIENT 13.1 SEC (12.2-14.7)
[2019-03-06] MEDS ORDERED: ZINC50TA51 PO (07:29)
[2019-03-06] MEDS ORDERED: MULT-1021 PO (07:29)
[2019-03-06] MEDS ORDERED: LEVO137T2 PO (07:29)
[2019-03-06] MEDS ORDERED: METO-370 PO (07:29)
[2019-03-06] MEDS ORDERED: OMEP20CA13 PO (07:29)
[2019-03-06] MEDS ORDERED: ACET-93 PO (07:29)
[2019-03-06 07:33] LABS: ALANINE AMINOTRANSFERASE 30 U/L (0-55); ALBUMIN 4.2 GM/DL (3.2-4.5); ALKALINE PHOSPHATASE 87 U/L (40-136); BILIRUBIN,TOTAL 0.4 MG/DL (0.1-1.0); BUN/CREATININE RATIO 25; CALCIUM 9.4 MG/DL (8.5-10.1); CARBON DIOXIDE 26 MMOL/L (21-32); CHLORIDE 106 MMOL/L (98-107); CHOLESTEROL 241 MG/DL (< 200); GFR ESTIMATED > 60; GLUCOSE 101 MG/DL (70-105); HDL CHOLESTEROL 46 MG/DL (40-60); POTASSIUM 4.3 MMOL/L (3.6-5.0); SODIUM 142 MMOL/L (135-145); TOTAL PROTEIN 7.8 GM/DL (6.4-8.2); TRIGLYCERIDES 287 MG/DL (<150); VLDL CHOLESTEROL 57 MG/DL (5-40)
[2019-03-06] MEDS ORDERED: fentaNYL INJECTION 100 MCG/2 ML AMP ONE (07:38)
[2019-03-06] MEDS ORDERED: MIDAZOLAM 5 MG/5 ML (VERSED) VIAL ONE (07:38)
[2019-03-06] MEDS ORDERED: methylPREDNISolone 125 MG (Solu-MEDROL) VIAL ONE (07:39)
[2019-03-06] MEDS ORDERED: diphenhydrAMINE 50 MG/ML INJ (BENADRYL) ONE (07:58)
--- NOTE | 2019-03-06 08:12 | Cardiac Procedure Note-CS/ASA ---
Pre-Procedure Note Pre-Op Procedure Note H&P Reviewed The H&P was reviewed, patient examined and no changes noted. Date H&P Reviewed: Mar 06, 2019 Time H&P Reviewed: 08:12 Conscious Sedation Pre-Proced Time 08:12 ASA Score 3 For ASA 3 and 4: Consider anesthesia and medical clearance. Also, for patients with a history of failed moderate sedation consider anesthesia. Airway Lungs Heart ASA score ASA 1: a normal healthy patient ASA 2: a patient with a mild systemic disease (mid diabetes, controlled hypertension, obesity x ASA 3: a patient with a severe systemic disease that limits activity (angina, COPD, prior Myocardial infarction) ASA 4: a patient with an incapacitating disease that is a constant threat to life (CHF, renal failure) ASA 5: a moribund patient not expected to survive 24 hrs. (ruptured aneurysm) ASA 6: a declared brain- patient whose organs are being harvested. For emergent operations, add the letter E after the classification Mallampati Classification Grade 3 Sedation Plan Analgesia, Amnesia, Plan communicated to team members, Discussed options with patient/fam, Discussed risks with patient/fam The patient is an appropriate candidate to undergo the planned procedure, sedation, and anesthesia. The patient immediately re-assessed prior to indication. THOMAS HEWITT MD Mar 06, 2019 08:12
[2019-03-06] MEDS ORDERED: meTOprolol 5 MG/5 ML (LOPRESSOR) VIAL ONE ×3 (08:23→09:21)
--- NOTE | 2019-03-06 08:23 | Diagnostic Imaging Report ---
INDICATION: Heart disease. FINDINGS: The heart size is normal. There is moderate central pulmonary venous congestion. There are patchy bibasilar infiltrates. There is no pleural effusion or pneumothorax. The mediastinum is unremarkable. IMPRESSION: Patchy bibasilar infiltrates, right greater than left. Mild central pulmonary venous congestion Dictated by: Dictated on workstation # [id number]
[2019-03-06] MEDS ORDERED: ATOR10TA PO (08:29)
--- NOTE | 2019-03-06 08:29 | Discharge Inst-Post CATH ---
Discharge Inst-CATH/EP Problems Reviewed?: Yes Post Cardiac Cath/EP D/C Inst Follow Up/Plan Appointment with Dr. Pritchett's office in 2-4 weeks <b>CARDIAC CATH/EP PROCEDURE DISCHARGE INSTRUCTIONS</b> ACTIVITY * Go Home directly and rest. * Limit activity of the leg (or wrist if it was used) for 7 days including aerobics, swimming, jogging, bicycling, etc. * Restrict stair-climbing for 7 days if possible, if not, climb up with your non-cath leg, then bring together on the same step. * Avoid lifting, pushing, pulling or excessive movement of the affected extremity for 7 days. * Customary sexual activity may be resumed after 2 days-use caution not to use a position that strains or causes pain to the affected extremity. * No driving for 24 hours. * NO SMOKING. * Avoid straining for bowel movements for 7 days. * Gentle walking on level ground is allowed. * Returning to work will depend on the type of procedure and the results. Your doctor will discuss this with you. CALL YOUR DOCTOR FOR ANY OF THE FOLLOWING: *If bleeding from the puncture site occurs- Apply gentle pressure to site with clean cloth and call your doctor or EMS. * If a knot or lump forms under the skin, increases in size, or causes pain. * If bruising appears to be worsening or moving further down your leg instead of disappearing. * Temperature above 101 F. CARE OF YOUR GROIN INCISION; * Bruising or purple discoloration of the skin near the puncture site is common. * You may shower only, no bathtub bathing for 5 days. Be careful to avoid slipping as your leg may feel stiff. * If a closure device was used on your femoral artery, please see the attached guide regarding care of the device and your leg. * Leave dressing on FOR 24 hours. CARE OF YOUR WRIST INCISION; * Bruising or purple discoloration of the skin near the puncture site is common. * You may shower. * DO NOT submerge wrist. * Leave dressing on FOR 24 hours. THOMAS PRITCHETT MD Mar 06, 2019 08:29
[2019-03-06] MEDS ORDERED: PATIENT MAY USE OWN MEDS, ALL PO SCH (08:30)
--- NOTE | 2019-03-06 08:34 | Cardiac Cath Report ---
Cardiac Cath Report Physician (s)/Tip Bander (s) Physician THOMAS HEWITT MD Pre-Procedure Diagnosis Pre-Procedure Diagnosis: Coronary artery disease Post-Procedure Note Procedure Start Date: Mar 06, 2019 Name of Procedure: Left heart catheterization Left ventriculogram Aortic arch angiogram Findings/Procedure Note PROCEDURE NOTE: 68-year-old lady with abnormal stress test, hypertension hyperlipidemia scheduled for cardiac catheterization possible PTCA. After explaining the procedure to the patient, all pros and cons were explained, all questions were answered. The patient signed the consent and then she was placed on the cardiac catheterization laboratory. Groin was prepped SL fashion local anesthesia was used. Sheath placed in the right femoral artery. Daryl right and left catheter were used to access the coronary system. Pigtail was used to access the left ventricular cavity. Left ventriculogram was done Aortic arch angiogram was done At the end of the procedure the sheath was removed. manual pressure applied FINDINGS: Hemodynamics LV 160/23, end-diastolic pressure of 23 Aorta 173/69 mean of 114 ANATOMY: Left Main is moderate in size with 50 percent ostial stenosis nonobstructive disease Left Anterior Descending is tortuous artery with mild disease nonobstructive disease Left Circumflex has mild disease nonobstructive disease Right Coronory Artery is dominant artery, has mild disease nonobstructive disease LV Gram was done showing normal left ventricular size and systolic function estimated ejection fraction 65 percent Aorta evaluation done with aortic arch angiogram, the aortic arch is normal in size, no dissection or aneurysm, origin of the innominate artery was normal and right carotid artery was normal, the left carotid artery appeared to be moderately calcified, the left subclavian artery is tortuous with no significant obstructive disease CONCLUSION: 1. 50 percent ostial left main coronary artery stenosis nonobstructive disease 2. Otherwise mild coronary artery disease nonobstructive disease 3. Left ventricular hypertensive changes with elevated left ventricular end diastolic pressure and normal systolic function estimated ejection fraction 65 percent 4. Calcification in the proximal portion of the left carotid artery, otherwise tortuous vessels in the neck, no significant obstructive disease 5. Normal aortic arch DISCUSSION AND RECOMMENDATION: continue to maximize medical therapy, start on Lipitor and monitor blood p ressure Anesthesia Type: Conscious Sedation Estimated blood loss (mL): 25 ml Contrast Amount: 69 ml Total Radiation Dose: 420 mGy Post-Procedure Diagnosis Post-operative diagnosis: Coronary artery disease Hypertension Hyperlipidemia Dyspnea on exertion THOMAS HEWITT MD Mar 06, 2019 08:34
== END 2019-03-06 13:53 | disposition home or self-care (01) ==
LOC: CATH 06:40 → SDC 09:39 → CATH 13:53
PROVIDERS: ATTEND Internal Medicine Cardiovascular Disease
DX: I25.10 Atherosclerotic heart disease of native coronary artery without angina pectoris (principal); I10 Essential (primary) hypertension; C79.51 Secondary malignant neoplasm of bone; C50.912 Malignant neoplasm of unspecified site of left female breast; E78.2 Mixed hyperlipidemia; E07.9 Disorder of thyroid, unspecified; E05.00 Thyrotoxicosis with diffuse goiter without thyrotoxic crisis or storm; G47.33 Obstructive sleep apnea (adult) (pediatric); M19.90 Unspecified osteoarthritis, unspecified site; Z88.0 Allergy status to penicillin; Z88.8 Allergy status to other drugs, medicaments and biological substances; Z91.048 Other nonmedicinal substance allergy status; Z79.899 Other long term (current) drug therapy; Z79.891 Long term (current) use of opiate analgesic; Z82.49 Family history of ischemic heart disease and other diseases of the circulatory system
CPT/HCPCS: 36221; 36415; 71045; 80053; 80061; 85027; 85610; 85730; 87081; 93458

== ENCOUNTER 2019-04-24 10:14 | Outpatient (RCR) | payer MEDICARE, OTHER ==
[2019-02-27 10:59] LABS: BASOPHILS % (AUTO) 1 % (0-10); EOSINOPHILS # (AUTO) 0.2 10^3/uL (0.0-0.3); EOSINOPHILS % (AUTO) 4 % (0-10); HEMATOCRIT 40 % (35-52); HEMOGLOBIN 13.1 G/DL (11.5-16.0); LYMPHOCYTES # (AUTO) 1.4 X 10^3 (1.0-4.0); LYMPHOCYTES % (AUTO) 26 % (12-44); MEAN CORPUSCULAR HEMOGLOBIN 29 PG (25-34); MEAN CORPUSCULAR HGB CONC 32 G/DL (32-36); MEAN CORPUSCULAR VOLUME 88 FL (80-99); MEAN PLATELET VOLUME 9.4 FL (7.4-10.4); MONOCYTES # (AUTO) 0.5 X 10^3 (0.0-1.0); MONOCYTES % (AUTO) 9 % (0-12); NEUTROPHILS # (AUTO) 3.2 X 10^3 (1.8-7.8); NEUTROPHILS % (AUTO) 60 % (42-75); PLATELET COUNT 286 10^3/uL (130-400); RED CELL DISTRIBUTION WIDTH 14.2 % (10.0-14.5); WHITE BLOOD COUNT 5.3 10^3/uL (4.3-11.0)
[2019-02-27 11:20] LABS: ALANINE AMINOTRANSFERASE 43 U/L (0-55); ALBUMIN 4.2 GM/DL (3.2-4.5); ALKALINE PHOSPHATASE 86 U/L (40-136); BILIRUBIN,TOTAL 0.4 MG/DL (0.1-1.0); BUN/CREATININE RATIO 17; CALCIUM 9.8 MG/DL (8.5-10.1); CARBON DIOXIDE 25 MMOL/L (21-32); CHLORIDE 105 MMOL/L (98-107); CREATININE SERUM 0.81 MG/DL (0.60-1.30); GFR ESTIMATED > 60; GLUCOSE 93 MG/DL (70-105); POTASSIUM 4.6 MMOL/L (3.6-5.0); SODIUM 140 MMOL/L (135-145); TOTAL PROTEIN 7.7 GM/DL (6.4-8.2)
[~2019-04-24 10:14] MED LIST changes: +ACET-93 PO; +ATOR10TA PO; +DENOSUMAB 120 MG/1.7 ML (XGEVA) SQ SCH; +FLU QUADRIvalent (5+ YOA) 2019-2020 (Cancer Ctr) 0.5 ML IM ONE; +FULVESTRANT 250 MG/5 ML SYR (CANCER CENTER) IM SCH; +LEVO137T2 PO; +METO-370 PO; +MULT-1021 PO; +OMEP20CA13 PO; +ZINC50TA51 PO
== END 2019-05-01 | disposition home or self-care (01) ==
LOC: ONC 10:14
PROVIDERS: ATTEND Internal Medicine Hematology & Oncology
DX: C50.412 Malignant neoplasm of upper-outer quadrant of left female breast (principal); C79.51 Secondary malignant neoplasm of bone; E55.9 Vitamin D deficiency, unspecified; Z79.818 Long term (current) use of other agents affecting estrogen receptors and estrogen levels; Z79.899 Other long term (current) drug therapy; Z23 Encounter for immunization
CPT/HCPCS: 36415; 80053; 85025; 86300; 90471; 96372; 96402

== ENCOUNTER → 2019-06-13 | Outpatient (CLI) | payer MEDICARE, OTHER ==
[~2019-06-13] MED LIST changes: -DENOSUMAB 120 MG/1.7 ML (XGEVA) SQ SCH; -FLU QUADRIvalent (5+ YOA) 2019-2020 (Cancer Ctr) 0.5 ML IM ONE; -FULVESTRANT 250 MG/5 ML SYR (CANCER CENTER) IM SCH; +HOLD METFORMIN - RECEIVED CONTRAST 20 ML VIAL IV SCH; +IOHEXOL 350 MG/ML 100 ML (OMNIPAQUE 350) VIAL IV ONE; -METO-370 PO; +METO50TA7 PO; +NS 100 ML (IVPB) BAG IV ONE; +OMEP-280 PO; -OMEP20CA13 PO
[2019-06-13] MEDS: CATHETER FLUSH 10 ML SYR IV PRN ×2 (10:14→11:04)
--- NOTE | 2019-06-13 14:05 | Diagnostic Imaging Report ---
EXAMINATION: Whole body bone scan. INDICATION: Breast cancer. TECHNIQUE: This study was performed following administration of 26.6 mCi of 99 technetium MDP. Anterior and posterior whole body images were obtained. Spot films of the calvarium and thorax were also obtained in the lateral projection. FINDINGS: The previous whole body bone scan of 03/22/2018 failed to show any sign of metastatic disease related to the patient's diagnosis of breast cancer. On this study, there is still no focal area of increased or decreased activity to indicate metastatic disease. There is still some abnormal activity in the lower thoracic spine and in the shoulder and knee joints. These findings do suggest degenerative disease. There is also degenerative disease of the right hip joint. There is a photopenic defect in the left hip consistent with a prosthesis. Both kidneys do show excretion of the radiotracer. IMPRESSION: The bone scan is stable when compared to the prior exam. There is no abnormal uptake to suggest metastatic disease or an acute abnormality. Dictated by: Dictated on workstation # [id number]
== END ==
LOC: CARD 10:02
PROVIDERS: ATTEND Nurse Practitioner Adult Health
DX: C50.412 Malignant neoplasm of upper-outer quadrant of left female breast (principal); C79.51 Secondary malignant neoplasm of bone; Z79.818 Long term (current) use of other agents affecting estrogen receptors and estrogen levels
CPT/HCPCS: 78306

== ENCOUNTER 2019-08-14 09:22 | Outpatient (RCR) | payer MEDICARE, OTHER ==
[2019-06-13 10:16] LABS: BASOPHILS % (AUTO) 1 % (0-10); EOSINOPHILS # (AUTO) 0.2 10^3/uL (0.0-0.3); EOSINOPHILS % (AUTO) 3 % (0-10); HEMATOCRIT 42 % (35-52); HEMOGLOBIN 13.5 G/DL (11.5-16.0); LYMPHOCYTES # (AUTO) 1.3 X 10^3 (1.0-4.0); LYMPHOCYTES % (AUTO) 22 % (12-44); MEAN CORPUSCULAR HEMOGLOBIN 29 PG (25-34); MEAN CORPUSCULAR HGB CONC 33 G/DL (32-36); MEAN CORPUSCULAR VOLUME 88 FL (80-99); MEAN PLATELET VOLUME 9.5 FL (7.4-10.4); MONOCYTES # (AUTO) 0.5 X 10^3 (0.0-1.0); MONOCYTES % (AUTO) 8 % (0-12); NEUTROPHILS % (AUTO) 66 % (42-75); PLATELET COUNT 296 10^3/uL (130-400); RED CELL DISTRIBUTION WIDTH 13.6 % (10.0-14.5)
[2019-06-13 10:38] LABS: ALANINE AMINOTRANSFERASE 35 U/L (0-55); ALBUMIN 4.3 GM/DL (3.2-4.5); ALKALINE PHOSPHATASE 93 U/L (40-136); BILIRUBIN,TOTAL 0.4 MG/DL (0.1-1.0); BUN/CREATININE RATIO 20; CALCIUM 9.2 MG/DL (8.5-10.1); CARBON DIOXIDE 25 MMOL/L (21-32); CHLORIDE 108 MMOL/L (98-107); GFR ESTIMATED > 60; GLUCOSE 95 MG/DL (70-105); POTASSIUM 4.5 MMOL/L (3.6-5.0); SODIUM 143 MMOL/L (135-145); TOTAL PROTEIN 7.4 GM/DL (6.4-8.2)
[~2019-08-14 09:22] MED LIST changes: +DENOSUMAB 120 MG/1.7 ML (XGEVA) SQ SCH; +FULVESTRANT 250 MG/5 ML SYR (CANCER CENTER) IM SCH; -HOLD METFORMIN - RECEIVED CONTRAST 20 ML VIAL IV SCH; -IOHEXOL 350 MG/ML 100 ML (OMNIPAQUE 350) VIAL IV ONE; -NS 100 ML (IVPB) BAG IV ONE; -OMEP-280 PO; +OMEP20CA18 PO
[2019-08-14 10:09] LABS: BASOPHILS % (AUTO) 0 % (0-10); EOSINOPHILS # (AUTO) 0.2 10^3/uL (0.0-0.3); EOSINOPHILS % (AUTO) 3 % (0-10); HEMATOCRIT 40 % (35-52); HEMOGLOBIN 13.1 G/DL (11.5-16.0); LYMPHOCYTES # (AUTO) 1.2 X 10^3 (1.0-4.0); LYMPHOCYTES % (AUTO) 18 % (12-44); MEAN CORPUSCULAR HEMOGLOBIN 29 PG (25-34); MEAN CORPUSCULAR HGB CONC 33 G/DL (32-36); MEAN CORPUSCULAR VOLUME 88 FL (80-99); MEAN PLATELET VOLUME 9.3 FL (7.4-10.4); MONOCYTES # (AUTO) 0.6 X 10^3 (0.0-1.0); MONOCYTES % (AUTO) 9 % (0-12); NEUTROPHILS # (AUTO) 4.7 X 10^3 (1.8-7.8); NEUTROPHILS % (AUTO) 69 % (42-75); PLATELET COUNT 281 10^3/uL (130-400); RED CELL DISTRIBUTION WIDTH 13.7 % (10.0-14.5); WHITE BLOOD COUNT 6.8 10^3/uL (4.3-11.0)
[2019-08-14 10:28] LABS: ALANINE AMINOTRANSFERASE 30 U/L (0-55); ALBUMIN 4.2 GM/DL (3.2-4.5); ALKALINE PHOSPHATASE 95 U/L (40-136); BILIRUBIN,TOTAL 0.4 MG/DL (0.1-1.0); BUN/CREATININE RATIO 15; CALCIUM 8.7 MG/DL (8.5-10.1); CARBON DIOXIDE 26 MMOL/L (21-32); CHLORIDE 103 MMOL/L (98-107); CREATININE SERUM 0.84 MG/DL (0.60-1.30); GFR ESTIMATED > 60; GLUCOSE 116 MG/DL (70-105); POTASSIUM 4.4 MMOL/L (3.6-5.0); SODIUM 139 MMOL/L (135-145); TOTAL PROTEIN 7.2 GM/DL (6.4-8.2)
== END 2019-08-19 | disposition home or self-care (01) ==
LOC: ONC 09:22
PROVIDERS: ATTEND Internal Medicine Hematology & Oncology
DX: C50.412 Malignant neoplasm of upper-outer quadrant of left female breast (principal); C79.51 Secondary malignant neoplasm of bone; E55.9 Vitamin D deficiency, unspecified; Z79.818 Long term (current) use of other agents affecting estrogen receptors and estrogen levels; Z79.899 Other long term (current) drug therapy
CPT/HCPCS: 80053; 85025; 86300; 96372; 96402

== ENCOUNTER 2019-12-04 09:18 | Outpatient (RCR) | payer MEDICARE, OTHER ==
[2019-11-06 10:04] LABS: BASOPHILS % (AUTO) 1 % (0-10); EOSINOPHILS # (AUTO) 0.2 10^3/uL (0.0-0.3); EOSINOPHILS % (AUTO) 3 % (0-10); HEMATOCRIT 40 % (35-52); HEMOGLOBIN 13.2 G/DL (11.5-16.0); LYMPHOCYTES # (AUTO) 1.2 X 10^3 (1.0-4.0); LYMPHOCYTES % (AUTO) 20 % (12-44); MEAN CORPUSCULAR HEMOGLOBIN 29 PG (25-34); MEAN CORPUSCULAR HGB CONC 33 G/DL (32-36); MEAN CORPUSCULAR VOLUME 87 FL (80-99); MEAN PLATELET VOLUME 9.4 FL (7.4-10.4); MONOCYTES # (AUTO) 0.5 X 10^3 (0.0-1.0); MONOCYTES % (AUTO) 8 % (0-12); NEUTROPHILS # (AUTO) 4.3 X 10^3 (1.8-7.8); NEUTROPHILS % (AUTO) 70 % (42-75); PLATELET COUNT 268 10^3/uL (130-400); RED CELL DISTRIBUTION WIDTH 13.6 % (10.0-14.5); WHITE BLOOD COUNT 6.2 10^3/uL (4.3-11.0)
[2019-11-06 10:31] LABS: ALANINE AMINOTRANSFERASE 24 U/L (0-55); ALBUMIN 4.1 GM/DL (3.2-4.5); ALKALINE PHOSPHATASE 79 U/L (40-136); BILIRUBIN,TOTAL 0.5 MG/DL (0.1-1.0); BUN/CREATININE RATIO 17; CALCIUM 9.2 MG/DL (8.5-10.1); CARBON DIOXIDE 27 MMOL/L (21-32); CHLORIDE 104 MMOL/L (98-107); CREATININE SERUM 0.82 MG/DL (0.60-1.30); GFR ESTIMATED > 60; GLUCOSE 95 MG/DL (70-105); POTASSIUM 4.1 MMOL/L (3.6-5.0); SODIUM 139 MMOL/L (135-145); TOTAL PROTEIN 7.3 GM/DL (6.4-8.2)
== END 2019-12-10 | disposition home or self-care (01) ==
LOC: ONC 09:18
PROVIDERS: ATTEND Internal Medicine Hematology & Oncology
DX: Z51.11 Encounter for antineoplastic chemotherapy (principal); C50.412 Malignant neoplasm of upper-outer quadrant of left female breast; C79.51 Secondary malignant neoplasm of bone; E55.9 Vitamin D deficiency, unspecified; Z79.818 Long term (current) use of other agents affecting estrogen receptors and estrogen levels; Z79.899 Other long term (current) drug therapy
CPT/HCPCS: 80053; 82306; 85025; 86300; 96372; 96402

== ENCOUNTER 2020-03-25 11:20 | Outpatient (RCR) | payer MEDICARE, OTHER ==
[2020-01-29 13:38] LABS: BASOPHILS % (AUTO) 0 % (0-10); EOSINOPHILS # (AUTO) 0.2 10^3/uL (0.0-0.3); EOSINOPHILS % (AUTO) 3 % (0-10); HEMATOCRIT 41 % (35-52); HEMOGLOBIN 13.8 G/DL (11.5-16.0); LYMPHOCYTES # (AUTO) 1.7 X 10^3 (1.0-4.0); LYMPHOCYTES % (AUTO) 23 % (12-44); MEAN CORPUSCULAR HEMOGLOBIN 29 PG (25-34); MEAN CORPUSCULAR HGB CONC 33 G/DL (32-36); MEAN CORPUSCULAR VOLUME 87 FL (80-99); MEAN PLATELET VOLUME 9.6 FL (7.4-10.4); MONOCYTES # (AUTO) 0.5 X 10^3 (0.0-1.0); MONOCYTES % (AUTO) 7 % (0-12); NEUTROPHILS # (AUTO) 4.9 X 10^3 (1.8-7.8); NEUTROPHILS % (AUTO) 67 % (42-75); PLATELET COUNT 300 10^3/uL (130-400); WHITE BLOOD COUNT 7.3 10^3/uL (4.3-11.0)
[2020-01-29 13:57] LABS: ALBUMIN 4.3 GM/DL (3.2-4.5); BILIRUBIN,TOTAL 0.4 MG/DL (0.1-1.0); CALCIUM 9.5 MG/DL (8.5-10.1); CREATININE SERUM 0.97 MG/DL (0.60-1.30); POTASSIUM 3.9 MMOL/L (3.6-5.0); TOTAL PROTEIN 7.9 GM/DL (6.4-8.2)
[~2020-03-25 11:20] MED LIST changes: +CLN.1T PO; -CLON0.1T PO
== END 2020-03-31 | disposition home or self-care (01) ==
LOC: ONC 11:20
PROVIDERS: ATTEND Internal Medicine Hematology & Oncology
DX: Z51.11 Encounter for antineoplastic chemotherapy (principal); C50.412 Malignant neoplasm of upper-outer quadrant of left female breast; C79.51 Secondary malignant neoplasm of bone; E55.9 Vitamin D deficiency, unspecified; I25.10 Atherosclerotic heart disease of native coronary artery without angina pectoris; I10 Essential (primary) hypertension; E78.2 Mixed hyperlipidemia; E03.9 Hypothyroidism, unspecified; Z79.899 Other long term (current) drug therapy; Z79.818 Long term (current) use of other agents affecting estrogen receptors and estrogen levels
CPT/HCPCS: 80053; 85025; 86300; 96402

== ENCOUNTER → 2020-04-20 | Outpatient (CLI) | payer MEDICARE, OTHER ==
[~2020-04-20] MED LIST changes: +CATHETER FLUSH 10 ML SYR IV PRN; -DENOSUMAB 120 MG/1.7 ML (XGEVA) SQ SCH; -FULVESTRANT 250 MG/5 ML SYR (CANCER CENTER) IM SCH; +HOLD METFORMIN - RECEIVED CONTRAST 20 ML VIAL IV SCH; +IOHEXOL 350 MG/ML 100 ML (OMNIPAQUE 350) VIAL IV ONE; +NS 100 ML (IVPB) BAG IV ONE
[2020-04-20] MEDS: CATHETER FLUSH 10 ML SYR IV PRN ×2 (10:48→12:17)
[2020-04-20 11:41] LABS: BUN/CREATININE RATIO 22; CREATININE SERUM 0.83 MG/DL (0.60-1.30); GFR ESTIMATED > 60
--- NOTE | 2020-04-20 12:59 | Diagnostic Imaging Report ---
PROCEDURE: CT chest and abdomen with contrast. TECHNIQUE: Multiple contiguous axial images were obtained through the chest and abdomen after the administration of intravenous contrast. Auto Exposure Controls were utilized during the CT exam to meet ALARA standards for radiation dose reduction. INDICATION: Stage IV breast carcinoma, followup. Correlation is made with prior CT from 06/13/2019. CT CHEST: No axillary lymphadenopathy is detected. No internal mammary, mediastinal or hilar lymphadenopathy is detected. There is no pericardial or pleural fluid. Lungs are clear. No pulmonary nodules or masses are seen. There are no infiltrates. A sclerotic foci in upper thoracic vertebrae are noted which could be metastatic. No other bony abnormality is detected. There is a large hiatal hernia. IMPRESSION: 1. No evidence of thoracic lymphadenopathy or pulmonary metastatic disease. There are some sclerotic foci involving upper thoracic vertebral bodies which could be metastatic. 2. Large hiatal hernia. CT ABDOMEN: There is a large hiatal hernia. No discrete liver mass is detected. Gallbladder is unremarkable. There is no biliary duct dilatation. Pancreas and spleen are unremarkable. No adrenal mass is detected. Kidneys are unremarkable. Aorta is calcified but nonaneurysmal. No central retroperitoneal or mesenteric lymphadenopathy is seen. Small and large bowel loops are normal in caliber. No ascites. Bony structures are unremarkable. IMPRESSION: Stable unremarkable CT of the abdomen apart from a large hiatal hernia. No abdominal lymphadenopathy or evidence of metastatic disease is detected. Dictated by: Dictated on workstation # [id number]
--- NOTE | 2020-04-20 15:49 | Diagnostic Imaging Report ---
INDICATION: Right knee pain. TECHNIQUE: Patient was administered 26.0 mCi technetium 99m MDP intravenously and whole body imaging was performed after a three-hour delay. COMPARISON: Correlation is made with prior bone scan from 06/13/2019. FINDINGS: Uptake of activity by the axial and appendicular skeleton is noted. There is uptake by the kidneys with excretion into the urinary bladder. There is a focus of increased uptake involving the midthoracic spine, similar to prior exam and perhaps degenerative. There is uptake at the lumbosacral junction, likely activity within degenerative facets. There is intense uptake involving the medial compartment of the right knee. This could be on a degenerative basis and correlation with radiographs of the right knee would be recommended. No other abnormal focus of tracer accumulation is seen. IMPRESSION: Uptake in the midthoracic and lower lumbar spine which may be degenerative. Intense uptake at the right knee medial compartment may be degenerative as well. Correlation with plain films would be useful for confirmation. No other significant abnormality is detected. Dictated by: Dictated on workstation # [id number]
== END ==
LOC: CARD 11:00
PROVIDERS: ATTEND Nurse Practitioner Adult Health
DX: Z12.89 Encounter for screening for malignant neoplasm of other sites (principal); C50.412 Malignant neoplasm of upper-outer quadrant of left female breast; C79.51 Secondary malignant neoplasm of bone; K44.9 Diaphragmatic hernia without obstruction or gangrene; Z79.818 Long term (current) use of other agents affecting estrogen receptors and estrogen levels
CPT/HCPCS: 71260; 74160; 78306; 82565; 84520; A9503; 36415

== ENCOUNTER 2020-05-20 13:46 | Outpatient (RCR) | payer MEDICARE, OTHER ==
[2020-04-21 09:25] LABS: BASOPHILS % (AUTO) 1 % (0-10); EOSINOPHILS # (AUTO) 0.2 10^3/uL (0.0-0.3); EOSINOPHILS % (AUTO) 3 % (0-10); HEMATOCRIT 43 % (35-52); HEMOGLOBIN 13.4 g/dL (11.5-16.0); LYMPHOCYTES # (AUTO) 1.2 10^3/uL (1.0-4.0); LYMPHOCYTES % (AUTO) 21 % (12-44); MEAN CORPUSCULAR HEMOGLOBIN 29 pg (25-34); MEAN CORPUSCULAR HGB CONC 32 g/dL (32-36); MEAN CORPUSCULAR VOLUME 92 fL (80-99); MEAN PLATELET VOLUME 10.5 fL (9.0-12.2); MONOCYTES # (AUTO) 0.5 10^3/uL (0.0-1.0); MONOCYTES % (AUTO) 9 % (0-12); NEUTROPHILS # (AUTO) 3.7 10^3/uL (1.8-7.8); NEUTROPHILS % (AUTO) 66 % (42-75); PLATELET COUNT 255 10^3/uL (130-400); WHITE BLOOD COUNT 5.6 10^3/uL (4.3-11.0)
[2020-04-21 09:39] LABS: ALANINE AMINOTRANSFERASE 45 U/L (0-55); ALBUMIN 4.3 GM/DL (3.2-4.5); ALKALINE PHOSPHATASE 101 U/L (40-136); BILIRUBIN,TOTAL 0.7 MG/DL (0.1-1.0); BUN/CREATININE RATIO 22; CALCIUM 10.1 MG/DL (8.5-10.1); CARBON DIOXIDE 27 MMOL/L (21-32); CHLORIDE 102 MMOL/L (98-107); CREATININE SERUM 0.82 MG/DL (0.60-1.30); GFR ESTIMATED > 60; GLUCOSE 102 MG/DL (70-105); POTASSIUM 4.4 MMOL/L (3.6-5.0); SODIUM 140 MMOL/L (135-145); TOTAL PROTEIN 7.4 GM/DL (6.4-8.2)
[~2020-05-20 13:46] MED LIST changes: -CATHETER FLUSH 10 ML SYR IV PRN; +DENOSUMAB 120 MG/1.7 ML (XGEVA) SQ SCH; +FULVESTRANT 250 MG/5 ML SYR (CANCER CENTER) IM SCH; -HOLD METFORMIN - RECEIVED CONTRAST 20 ML VIAL IV SCH; -IOHEXOL 350 MG/ML 100 ML (OMNIPAQUE 350) VIAL IV ONE; -NS 100 ML (IVPB) BAG IV ONE
== END 2020-06-05 14:43 | disposition home or self-care (01) ==
LOC: ONC 13:46
PROVIDERS: ATTEND Internal Medicine Hematology & Oncology
DX: C50.112 Malignant neoplasm of central portion of left female breast (principal); C79.51 Secondary malignant neoplasm of bone; E55.9 Vitamin D deficiency, unspecified; I25.10 Atherosclerotic heart disease of native coronary artery without angina pectoris; I10 Essential (primary) hypertension; E78.2 Mixed hyperlipidemia; E03.9 Hypothyroidism, unspecified; Z79.899 Other long term (current) drug therapy; Z79.818 Long term (current) use of other agents affecting estrogen receptors and estrogen levels; Z79.811 Long term (current) use of aromatase inhibitors; Z98.890 Other specified postprocedural states
CPT/HCPCS: 80053; 85025; 86300; 96372; 96402

== ENCOUNTER 2020-09-09 09:35 | Outpatient (RCR) | payer MEDICARE, OTHER ==
[2020-07-15 14:30] LABS: BASOPHILS % (AUTO) 0 % (0-10); EOSINOPHILS # (AUTO) 0.2 10^3/uL (0.0-0.3); EOSINOPHILS % (AUTO) 3 % (0-10); HEMATOCRIT 40 % (35-52); HEMOGLOBIN 13.1 g/dL (11.5-16.0); LYMPHOCYTES # (AUTO) 1.4 10^3/uL (1.0-4.0); LYMPHOCYTES % (AUTO) 21 % (12-44); MEAN CORPUSCULAR HEMOGLOBIN 30 pg (25-34); MEAN CORPUSCULAR HGB CONC 33 g/dL (32-36); MEAN CORPUSCULAR VOLUME 91 fL (80-99); MEAN PLATELET VOLUME 9.4 fL (9.0-12.2); MONOCYTES # (AUTO) 0.6 10^3/uL (0.0-1.0); MONOCYTES % (AUTO) 8 % (0-12); NEUTROPHILS # (AUTO) 4.5 10^3/uL (1.8-7.8); NEUTROPHILS % (AUTO) 68 % (42-75); PLATELET COUNT 277 10^3/uL (130-400); WHITE BLOOD COUNT 6.7 10^3/uL (4.3-11.0)
[2020-07-15 14:46] LABS: ALBUMIN 4.1 GM/DL (3.2-4.5); BILIRUBIN,TOTAL 0.5 MG/DL (0.1-1.0); CREATININE SERUM 1.07 MG/DL (0.60-1.30); POTASSIUM 4.2 MMOL/L (3.6-5.0); TOTAL PROTEIN 7.2 GM/DL (6.4-8.2)
[~2020-09-09 09:35] MED LIST changes: +DENOSUMAB 120 MG/1.7 ML (XGEVA) SQ SCH; +FULVESTRANT 250 MG/5 ML SYR (CANCER CENTER) IM SCH
== END 2020-09-15 | disposition home or self-care (01) ==
LOC: ONC 09:35
PROVIDERS: ATTEND Internal Medicine Hematology & Oncology
DX: C50.112 Malignant neoplasm of central portion of left female breast (principal); C79.51 Secondary malignant neoplasm of bone; E55.9 Vitamin D deficiency, unspecified; I25.10 Atherosclerotic heart disease of native coronary artery without angina pectoris; I10 Essential (primary) hypertension; E78.2 Mixed hyperlipidemia; E03.9 Hypothyroidism, unspecified; Z79.899 Other long term (current) drug therapy; Z79.818 Long term (current) use of other agents affecting estrogen receptors and estrogen levels; Z79.811 Long term (current) use of aromatase inhibitors; Z98.890 Other specified postprocedural states
CPT/HCPCS: 80053; 85025; 86300; 96402

== ENCOUNTER → 2020-09-09 | Outpatient (CLI) | payer MEDICARE, OTHER ==
[~2020-09-09] MED LIST changes: -DENOSUMAB 120 MG/1.7 ML (XGEVA) SQ SCH; -FULVESTRANT 250 MG/5 ML SYR (CANCER CENTER) IM SCH
== END ==
LOC: CARD 09:04
PROVIDERS: ATTEND Internal Medicine Cardiovascular Disease
DX: I10 Essential (primary) hypertension (principal)
CPT/HCPCS: 93306

== ENCOUNTER → 2020-10-05 | Outpatient (CLI) | payer MEDICARE, OTHER ==
[~2020-10-05] MED LIST changes: +CATHETER FLUSH 10 ML SYR IV PRN; -DENOSUMAB 120 MG/1.7 ML (XGEVA) SQ SCH; -FULVESTRANT 250 MG/5 ML SYR (CANCER CENTER) IM SCH; +HOLD METFORMIN - RECEIVED CONTRAST 20 ML VIAL IV SCH; +IOHEXOL 350 MG/ML 100 ML (OMNIPAQUE 350) VIAL IV ONE; +NS 100 ML (IVPB) BAG IV ONE
[2020-10-05] MEDS: CATHETER FLUSH 10 ML SYR IV PRN ×2 (10:26→10:46)
--- NOTE | 2020-10-05 11:41 | Diagnostic Imaging Report ---
INDICATION: Breast cancer. TECHNIQUE: Multiple contiguous axial images were obtained through the chest and abdomen after the administration of intravenous contrast. Auto Exposure Controls were utilized during the CT exam to meet ALARA standards for radiation dose reduction. Comparison made to prior CT of 04/20/2020. CT chest findings: There are no enlarged mediastinal or hilar nodes. There are no enlarged axillary nodes or chest wall lesions. There is a prominent hiatal hernia. There is no pleural or pericardial fluid. Lung parenchymal windows demonstrate a calcified granuloma in the right upper lobe which is unchanged. There is no new pulmonary parenchymal nodule. There is no destructive bony lesion in the chest. There are diffuse degenerative changes throughout the thoracic spine. CT abdomen findings: The liver shows no focal lesion. Gallbladder appears normal. Spleen, adrenals, and pancreas are normal. The kidneys bilaterally appear unremarkable except for a tiny cyst in the left kidney which is stable. There is no retroperitoneal adenopathy. There is no ascites. Visualized bowel loops are nonobstructed. IMPRESSION: CT chest shows no evidence of metastatic disease. A prominent hiatal hernia is noted. There is a calcified granuloma in the right upper lobe which is unchanged. CT abdomen demonstrates no evidence of metastatic disease. There is a small left renal cyst. Dictated by: Dictated on workstation # [id number]
--- NOTE | 2020-10-05 14:36 | Diagnostic Imaging Report ---
INDICATION: Breast neoplasm. Patient was administered 27.4 mCi technetium 99m MDP intravenously and whole-body imaging was performed after a three-hour delay. Correlation is made with prior whole body bone scan from 04/20/2020. Normal uptake by the axial and appendicular skeleton is again noted. There is uptake by the kidneys with excretion to urinary bladder. Subtle uptake in the midthoracic spine is again noted with mild degenerative uptake at the lumbosacral junction again noted. Since prior study patient appears to have undergone a right total knee arthroplasty. There is activity surrounding the prosthesis in the right knee. There is a focus of uptake involving the mid shaft of the right tibia. No other suspicious uptake is identified. IMPRESSION: Probable postsurgical changes involving the right knee. A focus in the mid shaft of the tibia is noted indeterminate. No other suspicious foci are identified to suggest osseous metastatic disease. Dictated by: Dictated on workstation # [id number]
== END ==
LOC: CARD 10:00
PROVIDERS: ATTEND Nurse Practitioner Adult Health
DX: C50.412 Malignant neoplasm of upper-outer quadrant of left female breast (principal); C79.51 Secondary malignant neoplasm of bone; K44.9 Diaphragmatic hernia without obstruction or gangrene; J84.10 Pulmonary fibrosis, unspecified; Z98.890 Other specified postprocedural states
CPT/HCPCS: 71260; 74160; 78306; A9503

== ENCOUNTER → 2020-10-08 | Outpatient (CLI) | payer MEDICARE, OTHER ==
[~2020-10-08] MED LIST changes: -HOLD METFORMIN - RECEIVED CONTRAST 20 ML VIAL IV SCH; -IOHEXOL 350 MG/ML 100 ML (OMNIPAQUE 350) VIAL IV ONE; -NS 100 ML (IVPB) BAG IV ONE
--- NOTE | 2020-10-08 13:45 | Diagnostic Imaging Report ---
INDICATION: Shortness of breath and pulmonary hypertension. Patient was administered 5.4 mCi technetium 99m MAA intravenously and imaging over the chest was performed at multiple obliquities. There is homogeneous perfusion to both lungs. No pleural-based perfusion defects are identified. IMPRESSION: Normal perfusion lung scan. Dictated by: Dictated on workstation # [id number]
== END ==
LOC: CARD 13:00
PROVIDERS: ATTEND Internal Medicine Critical Care Medicine
DX: I27.20 Pulmonary hypertension, unspecified (principal); J44.9 Chronic obstructive pulmonary disease, unspecified
CPT/HCPCS: 78580; A9540

== ENCOUNTER → 2020-11-03 | Outpatient (CLI) | payer MEDICARE, OTHER ==
[~2020-11-03] MED LIST changes: -CATHETER FLUSH 10 ML SYR IV PRN
--- NOTE | 2020-11-03 15:21 | Diagnostic Imaging Report ---
INDICATION: Postmenopausal state. COMPARISON: None available. FINDINGS: AP Spine L1-L4: [BMD (g/cm2): 1.193] [T-Score: -0.1] [Z-Score: 0.5] [BMD Previous: NA] [BMD % Change: NA] LT Hip Neck: [BMD (g/cm2): NA] [T-Score: NA] [Z-Score: NA] LT Hip Total: [BMD (g/cm2):NA] [T-Score:NA] [Z-Score: NA] [BMD Previous: NA] [BMD % Change: NA] RT Hip Neck: [BMD (g/cm2):1.051] [T-Score:0.1] [Z-Score:1.0] RT Hip Total: [BMD (g/cm2):1.075] [T-score:0.5] [Z-Score:1.1] [BMD Previous:NA] [BMD % Change:NA] *Indicates significant change from prior examination based on 95% confidence level. World Health Organization criteria for BMD interpretation classify patients as Normal (T-score at or above -1.0), Osteopenic (T-score between -1.0 and -2.5) or Osteoporotic (T-score at or below -2.5). LIMITATIONS AND MODIFICATION: The left hip was not evaluated secondary to postsurgical changes. IMPRESSION: 1. Normal bone mineral density. 2. Baseline examination. 3. See below National Osteoporosis Foundation guidelines on when to potentially initiate pharmacologic therapy. Based on the National Osteoporosis Foundation Guidelines, pharmacologic treatment should be initiated in any of the following, unless clinical conditions suggest otherwise: * Any patient with prior fragility fracture of the hip or vertebrae. A spine fracture indicates 5X risk for subsequent spine fracture and 2X risk for subsequent hip fracture. * Osteoporosis (T-score <-2.5). * Postmenopausal women and men age 50 and older with low bone mass/osteopenia (T-score between -1.0 and -2.5) by DXA and 10-year major osteoporotic fracture greater than 20% or a 10-year probability of hip fracture greater than 3%. These fracture risks are supplied above in the FRAX score, if applicable. * Clinician judgement and/or patient preferences may indicate treatment for people with 10-year fracture probabilities above or below these levels. Dictated by: Dictated on workstation # [id number]
--- NOTE | 2020-11-06 16:11 | Diagnostic Imaging Report ---
INDICATION: Routine screening. COMPARISON is made with prior mammogram from 03/26/2012. 2-D and 3-D bilateral screening mammography was performed with CAD. Scattered fibroglandular densities are identified bilaterally. Area of architectural distortion in the central left breast appears stable. This is actually less prominent on today's study when compared with the study from 2011. This is most consistent with post-therapeutic changes. No mass or malignant appearing microcalcifications are seen. Axillae are unremarkable. IMPRESSION: BI-RADS Category 2 No mammographic features suspicious for malignancy are identified. ACR BI-RADS Category 2: Benign findings. Result letter will be mailed to the patient. Note: At least 10% of breast cancer is not imaged by mammography. Dictated on workstation # [id number]
== END ==
LOC: RAD 13:30
PROVIDERS: ATTEND Internal Medicine Hematology & Oncology
DX: Z12.31 Encounter for screening mammogram for malignant neoplasm of breast (principal); E55.9 Vitamin D deficiency, unspecified; Z78.0 Asymptomatic menopausal state; Z79.811 Long term (current) use of aromatase inhibitors; Z85.3 Personal history of malignant neoplasm of breast
CPT/HCPCS: 77063; 77067; 77080

== ENCOUNTER 2020-12-29 12:02 | Outpatient (RCR) | payer MEDICARE, OTHER ==
[2020-10-05 09:54] LABS: BASOPHILS % (AUTO) 1 % (0-10); EOSINOPHILS # (AUTO) 0.4 10^3/uL (0.0-0.3); EOSINOPHILS % (AUTO) 6 % (0-10); HEMATOCRIT 36 % (35-52); HEMOGLOBIN 11.8 g/dL (11.5-16.0); LYMPHOCYTES # (AUTO) 1.4 10^3/uL (1.0-4.0); LYMPHOCYTES % (AUTO) 21 % (12-44); MEAN CORPUSCULAR HEMOGLOBIN 30 pg (25-34); MEAN CORPUSCULAR HGB CONC 32 g/dL (32-36); MEAN CORPUSCULAR VOLUME 92 fL (80-99); MEAN PLATELET VOLUME 9.4 fL (9.0-12.2); MONOCYTES # (AUTO) 0.5 10^3/uL (0.0-1.0); MONOCYTES % (AUTO) 8 % (0-12); NEUTROPHILS # (AUTO) 4.2 10^3/uL (1.8-7.8); NEUTROPHILS % (AUTO) 65 % (42-75); PLATELET COUNT 368 10^3/uL (130-400); WHITE BLOOD COUNT 6.5 10^3/uL (4.3-11.0)
[2020-10-05 10:26] LABS: ALANINE AMINOTRANSFERASE 30 U/L (0-55); ALBUMIN 3.9 GM/DL (3.2-4.5); ALKALINE PHOSPHATASE 114 U/L (40-136); BILIRUBIN,TOTAL 0.5 MG/DL (0.1-1.0); BUN/CREATININE RATIO 22; CALCIUM 10.2 MG/DL (8.5-10.1); CARBON DIOXIDE 29 MMOL/L (21-32); CHLORIDE 102 MMOL/L (98-107); CREATININE SERUM 0.91 MG/DL (0.60-1.30); GFR ESTIMATED > 60; GLUCOSE 98 MG/DL (70-105); SODIUM 139 MMOL/L (135-145); TOTAL PROTEIN 6.9 GM/DL (6.4-8.2)
[~2020-12-29 12:02] MED LIST changes: +DENOSUMAB 120 MG/1.7 ML (XGEVA) SQ SCH; +FULVESTRANT 250 MG/5 ML SYR (CANCER CENTER) IM SCH
[2020-12-29 13:01] LABS: BASOPHILS % (AUTO) 0 % (0-10); EOSINOPHILS # (AUTO) 0.3 10^3/uL (0.0-0.3); EOSINOPHILS % (AUTO) 4 % (0-10); HEMATOCRIT 39 % (35-52); HEMOGLOBIN 12.6 g/dL (11.5-16.0); LYMPHOCYTES # (AUTO) 1.4 10^3/uL (1.0-4.0); LYMPHOCYTES % (AUTO) 19 % (12-44); MEAN CORPUSCULAR HEMOGLOBIN 29 pg (25-34); MEAN CORPUSCULAR HGB CONC 32 g/dL (32-36); MEAN CORPUSCULAR VOLUME 90 fL (80-99); MEAN PLATELET VOLUME 9.6 fL (9.0-12.2); MONOCYTES # (AUTO) 0.8 10^3/uL (0.0-1.0); MONOCYTES % (AUTO) 11 % (0-12); NEUTROPHILS # (AUTO) 4.7 10^3/uL (1.8-7.8); NEUTROPHILS % (AUTO) 66 % (42-75); PLATELET COUNT 310 10^3/uL (130-400); WHITE BLOOD COUNT 7.2 10^3/uL (4.3-11.0)
[2020-12-29 13:17] LABS: ALBUMIN 3.9 GM/DL (3.2-4.5); BILIRUBIN,TOTAL 0.4 MG/DL (0.1-1.0); CALCIUM 9.9 MG/DL (8.5-10.1); CREATININE SERUM 0.99 MG/DL (0.60-1.30); POTASSIUM 4.7 MMOL/L (3.6-5.0); TOTAL PROTEIN 7.4 GM/DL (6.4-8.2)
== END 2021-01-03 | disposition home or self-care (01) ==
LOC: ONC 12:02
PROVIDERS: ATTEND Internal Medicine Hematology & Oncology
DX: C50.112 Malignant neoplasm of central portion of left female breast (principal); C79.51 Secondary malignant neoplasm of bone; E55.9 Vitamin D deficiency, unspecified; I25.10 Atherosclerotic heart disease of native coronary artery without angina pectoris; I10 Essential (primary) hypertension; E78.2 Mixed hyperlipidemia; E03.9 Hypothyroidism, unspecified; M19.90 Unspecified osteoarthritis, unspecified site; G47.33 Obstructive sleep apnea (adult) (pediatric); Z79.891 Long term (current) use of opiate analgesic; Z79.1 Long term (current) use of non-steroidal anti-inflammatories (NSAID); Z79.899 Other long term (current) drug therapy; Z79.818 Long term (current) use of other agents affecting estrogen receptors and estrogen levels; Z79.811 Long term (current) use of aromatase inhibitors; Z98.890 Other specified postprocedural states; Z79.82 Long term (current) use of aspirin
CPT/HCPCS: 80053; 85025; 86300; 96372; 96402

== ENCOUNTER → 2021-02-19 | Outpatient (CLI) | payer MEDICARE, OTHER ==
[~2021-02-19] MED LIST changes: -DENOSUMAB 120 MG/1.7 ML (XGEVA) SQ SCH; -FULVESTRANT 250 MG/5 ML SYR (CANCER CENTER) IM SCH
== END ==
LOC: CARD 10:00
PROVIDERS: ATTEND Physician Assistant
DX: I11.9 Hypertensive heart disease without heart failure (principal); I34.0 Nonrheumatic mitral (valve) insufficiency
CPT/HCPCS: 93306

== ENCOUNTER 2021-04-20 11:21 | Outpatient (RCR) | payer MEDICARE, OTHER ==
[2021-03-23 10:44] LABS: BASOPHILS % (AUTO) 1 % (0-10); EOSINOPHILS # (AUTO) 0.2 10^3/uL (0.0-0.3); EOSINOPHILS % (AUTO) 3 % (0-10); HEMATOCRIT 41 % (35-52); HEMOGLOBIN 13.2 g/dL (11.5-16.0); LYMPHOCYTES # (AUTO) 1.2 10^3/uL (1.0-4.0); LYMPHOCYTES % (AUTO) 19 % (12-44); MEAN CORPUSCULAR HEMOGLOBIN 29 pg (25-34); MEAN CORPUSCULAR HGB CONC 32 g/dL (32-36); MEAN CORPUSCULAR VOLUME 89 fL (80-99); MEAN PLATELET VOLUME 9.5 fL (9.0-12.2); MONOCYTES # (AUTO) 0.6 10^3/uL (0.0-1.0); MONOCYTES % (AUTO) 9 % (0-12); NEUTROPHILS # (AUTO) 4.4 10^3/uL (1.8-7.8); NEUTROPHILS % (AUTO) 68 % (42-75); PLATELET COUNT 270 10^3/uL (130-400); WHITE BLOOD COUNT 6.4 10^3/uL (4.3-11.0)
[2021-03-23 11:03] LABS: ALBUMIN 4.2 GM/DL (3.2-4.5); BILIRUBIN,TOTAL 0.5 MG/DL (0.1-1.0); CALCIUM 9.1 MG/DL (8.5-10.1); CREATININE SERUM 0.81 MG/DL (0.60-1.30); POTASSIUM 3.9 MMOL/L (3.6-5.0); TOTAL PROTEIN 7.3 GM/DL (6.4-8.2)
[~2021-04-20 11:21] MED LIST changes: +DENOSUMAB 120 MG/1.7 ML (XGEVA) SQ SCH; +FLU QUADRIvalent (3YOA+) 60 mcg/0.5 ml 2021-22(CANCER CTR) IM ONE; +FULVESTRANT 250 MG/5 ML SYR (CANCER CENTER) IM SCH
== END 2021-04-26 | disposition home or self-care (01) ==
LOC: ONC 11:21
PROVIDERS: ATTEND Internal Medicine Hematology & Oncology
DX: C50.112 Malignant neoplasm of central portion of left female breast (principal); C79.51 Secondary malignant neoplasm of bone; E03.9 Hypothyroidism, unspecified; E78.2 Mixed hyperlipidemia; I10 Essential (primary) hypertension; E66.9 Obesity, unspecified; Z79.811 Long term (current) use of aromatase inhibitors; Z87.891 Personal history of nicotine dependence; Z23 Encounter for immunization
CPT/HCPCS: 80053; 85025; 86300; 90471; 96372; 96402

== ENCOUNTER 2021-05-18 09:56 | Outpatient (RCR) | payer MEDICARE, OTHER ==
[~2021-05-18 09:56] MED LIST changes: -FLU QUADRIvalent (3YOA+) 60 mcg/0.5 ml 2021-22(CANCER CTR) IM ONE
[2021-05-18 10:10] LABS: BASOPHILS % (AUTO) 0 % (0-10); EOSINOPHILS # (AUTO) 0.1 10^3/uL (0.0-0.3); EOSINOPHILS % (AUTO) 2 % (0-10); HEMATOCRIT 42 % (35-52); HEMOGLOBIN 13.8 g/dL (11.5-16.0); LYMPHOCYTES # (AUTO) 1.2 10^3/uL (1.0-4.0); LYMPHOCYTES % (AUTO) 18 % (12-44); MEAN CORPUSCULAR HEMOGLOBIN 29 pg (25-34); MEAN CORPUSCULAR HGB CONC 33 g/dL (32-36); MEAN CORPUSCULAR VOLUME 88 fL (80-99); MEAN PLATELET VOLUME 9.4 fL (9.0-12.2); MONOCYTES # (AUTO) 0.6 10^3/uL (0.0-1.0); MONOCYTES % (AUTO) 9 % (0-12); NEUTROPHILS # (AUTO) 5.1 10^3/uL (1.8-7.8); NEUTROPHILS % (AUTO) 71 % (42-75); PLATELET COUNT 329 10^3/uL (130-400); WHITE BLOOD COUNT 7.1 10^3/uL (4.3-11.0)
[2021-05-18 10:31] LABS: ALBUMIN 4.3 GM/DL (3.2-4.5); BILIRUBIN,TOTAL 0.7 MG/DL (0.1-1.0); CALCIUM 9.4 MG/DL (8.5-10.1); CREATININE SERUM 1.07 MG/DL (0.60-1.30); POTASSIUM 3.3 MMOL/L (3.6-5.0); TOTAL PROTEIN 7.9 GM/DL (6.4-8.2)
== END 2021-05-21 | disposition still patient (30) ==
LOC: ONC 09:56
PROVIDERS: ATTEND Internal Medicine Hematology & Oncology
DX: C50.112 Malignant neoplasm of central portion of left female breast (principal); C79.51 Secondary malignant neoplasm of bone; E03.9 Hypothyroidism, unspecified; E78.2 Mixed hyperlipidemia; I10 Essential (primary) hypertension; E66.9 Obesity, unspecified; Z79.811 Long term (current) use of aromatase inhibitors; Z87.891 Personal history of nicotine dependence
CPT/HCPCS: 80053; 85025; 86300; 96372; 96402; G0463

== ENCOUNTER → 2022-08-10 | Outpatient (CLI) | payer MEDICARE, OTHER ==
[~2022-08-10] MED LIST changes: -DENOSUMAB 120 MG/1.7 ML (XGEVA) SQ SCH; -FULVESTRANT 250 MG/5 ML SYR (CANCER CENTER) IM SCH
== END ==
LOC: CARD 10:23
PROVIDERS: ATTEND Internal Medicine Cardiovascular Disease
DX: I11.9 Hypertensive heart disease without heart failure (principal)
CPT/HCPCS: 93306